=== PATIENT | female | born 1990 | race Caucasian/White ===

== ENCOUNTER 2023-11-01 12:12 | Emergency (ER) | payer MEDICAID, SELFPAY ==
--- NOTE | ~2023-11-01 | XR_ITS ---
EXAMINATION: XR KNEE, LEFT CLINICAL INFORMATION: Pain. No trauma. COMPARISON: None available. TECHNIQUE: Four views of the left knee. FINDINGS: No fracture or subluxation. Joint spaces are maintained. No significant joint effusion. No abnormal soft tissue calcifications. XR/XR knee LT 4V IMPRESSION: No significant radiographic abnormality in the left knee.
[2023-11-01 12:16] VITALS: BP 115/68; PULSE 67; RESP 17; TEMP 36.6; O2SAT 98; BMI 29.8
--- NOTE | 2023-11-01 12:18 | ED.LOWEXIN ---
HPI - Extremity Injury (Lower) General Chief Complaint: Extremity Injury, Lower Stated Complaint: knee pain Time Seen by Provider: 11/01/23 13:49 Source: patient Mode of arrival: ambulatory Limitations: no limitations History of Present Illness ED Provider: Ene Pimentel PA-C HPI Narrative: Patient is a 33 year old assigned female at with a history of a left knee scope for meniscus issues presenting to the emergency department today with left knee pain. Patient states that starting this morning she began having left knee pain. Patient states that her knee was previously scoped in [place] but she does not have an orthopedic physician here. Patient denies any dizziness, lightheadedness, abdominal pain, nausea, vomiting, fever, chills, blurry vision, double vision, loss of vision, chest pain, difficulty breathing, shortness of breath, back pain, night sweats, pain with urination, increased urinary frequency, increased urinary urgency, blood in her urine or stool, syncope or a near syncopal episode, recent trauma or falls, bowel incontinence, bladder incontinence, or any other complaints at this time. Relieving factors: nothing Exacerbating factors: nothing Related Data Previous Rx's ?Medication ?Instructions ?Recorded celecoxib 200 mg capsule (Celebrex) 200 mg PO BID 2 weeks #28 caps 11/01/23 Allergies Allergy/AdvReac Type Severity Reaction Status Date / Time No Known Allergies Allergy Verified 11/01/23 12:18 [No Known Allergies*] Review of Systems Constitutional: Constitutional: Reports no additional constitutional complaints, Denies chills, Denies fever(s) and Denies night sweats Eyes: Eyes: Reports no additional eye complaints, Denies blurry vision, Denies change in vision, Denies diplopia, Denies eye discharge, Denies loss of vision and Denies eye pain ENT: Denies dizziness Cardiovascular: Cardiovascular: Reports no additional cardiovascular complaints, Denies chest pain, Denies lightheadedness, Denies Loss of Consciousness and Denies dyspnea Respiratory: Respiratory: Reports no additional respiratory complaints and Denies dyspnea Gastrointestinal: Gastrointestinal: Reports no additional gastrointestinal complaints, Denies abdominal pain, Denies melena, Denies hematochezia, Denies change in bowel habits and Denies change in stool character Genitourinary: Genitourinary: Denies hematuria, Denies urinary frequency, Denies dysuria, Denies urinary incontinence, Denies urinary hesitancy and Denies urinary urgency Musculoskeletal: Musculoskeletal: Reports no additional musculoskeletal complaints, Denies numbness and Denies tingling Comments: left knee pain Neurologic: Denies dizziness, Denies loss of vision, Denies numbness and Denies tingling Psychiatric: Psychiatric: Reports no additional psychiatric complaints Endocrine: Endocrine: Reports no additional endocrine complaints Hematologic/Lymphatic: Hematologic/Lymphatic: Reports no additional hematologic/lymphatic complaints Allergic/Immunologic: Allergic/Immunologic: Reports no additional allergic/immunologic complaints PMFSH Past Medical History Attestation statement: The following information was validated with the patient. Source: old records reviewed and nursing notes reviewed Social History Social History Advance Directives: No Advance Directives Information Provided: Yes Physical Exam Vital Signs: Vital Signs: Last Vital Signs Temp 98.1 F 11/01/23 14:21 Pulse 62 11/01/23 14:21 Resp 16 11/01/23 14:21 BP 106/71 11/01/23 14:21 Pulse Ox 99 11/01/23 14:21 O2 Del Method Room Air 11/01/23 14:21 BMI result Body Mass Index 29.8 Const: General: cooperative, no acute distress, alert and awake Nutritional Appearance: well nourished Orientation/consciousness: patient oriented x3 Limitations: no limitations HEENT: Head: Yes normal to inspection and Yes atraumatic Ears: hearing grossly normal bilaterally and external ears normal General nose exam: Normal external nose present, no nasal discharge noted and no epistaxis Face and sinus: Yes normal facial exam, No abrasion and No laceration Mouth: Normal oral and palatal mucosa present, no drooling and no muffled voice Eyes: General: appearance normal, both eyes and all related structures Periorbital: periorbital findings normal Eyelids: Yes eyelids normal Conjunctivae: conjunctivae normal Pupils: Equal, round and reactive pupils present EOM: EOMs intact bilaterally Neck: Neck: Yes normal visual inspection, Yes full ROM and Yes no lymphadenopathy Chest: Chest palpation & inspection: normal inspection of the chest Resp: Effort & Inspection: normal respiratory effort and able to speak in complete sentences GI: Inspection: Yes normal to inspection Neuro: General: patient oriented x3 and moves all extremities Cranial nerves: Yes Equal, round and reactive pupils present Cognition (Neuro): normal cognition Motor exam (neuro): 5 motor strength present throughout Sensory Exam: Normal double simultaneous stimulation for sensation Coordination: [id number] test normal Extrem: General: Yes normal to inspection, Yes full ROM and Yes capillary refill normal Psych: Appearance: grossly normal Mental Status: mental status grossly normal Affect: normal affect Attitude: cooperative Thought process: Normal thought process present Thought content: Normal thought content present Insight: Good insight present (Psych) Course Course Course Narrative: This is a Rapid Medical Examination (RME) performed by Winifred Fabian PA-C in triage. Full HPI, ROS, assessment and treatment plan per primary provider in the Main ED. 33 yo female hx of left meniscus tear s/p surgical repair 1 yr ago here for eval of atraumatic left knee pain which began yesterday around 0400. took motrin with little relief, last dose being yesterday. unsure if she twisted the knee in her sleep. no recent travel or long car rides. no LLE swelling. ambulating with antalgic gait. no calf tenderness. no obvious joint effusion of right knee. no deformity. Plan: xr ordered Medications Administered Discontinued Medications Generic Name Dose Route Start Last Admin Trade Name Freq PRN Reason Stop Dose Admin Ketorolac Tromethamine 15 mg 11/01/23 13:52 11/01/23 14:13 Ketorolac Tromethamine 15 Mg/Ml Vial IM 11/01/23 13:53 15 mg ONCE ONE Administration Medical Decision Making Medical Decision Making [facility] Narrative: Patient is a 33 year old assigned female at with a history of a previous left knee scope presenting to the emergency department today with left knee pain. Patient's physical exam was unremarkable. Patient's left knee x-ray showed no acute process. I explained my physical exam findings as well as all test results to the patient. I answered all questions asked by the patient. Patient received IM toradol which upon re-evaluation she stated helped her symptoms significantly. I stressed the importance of the patient taking her medication as prescribed. I stressed the importance of the patient following up with her primary care provider and an orthopedic provider. I stressed the importance of the patient returning to the emergency department immediately if her symptoms were to worsen or if she were to develop any dizziness, shortness of breath, difficulty breathing, chest pain, blurry vision, loss of vision, nausea, vomiting, abdominal pain, fever, chills, back pain, or any other complaints. Patient verbalized agreement and understanding with this treatment plan and discharge. Differential Diagnosis Differential Diagnoses: The differential diagnosis associated with the presentation includes Left knee pain Osteoarthritis Knee sprain Knee strain Admission/Observation Consideration of admission/observation: Escalation of care including admission/observation considered Patient would have been admitted to the hospital had her work up had any findings where hospital admission was appropriate and her clinical presentation warranted hospital admission. Independent Interpretation I performed an independent interpretation of an: Plain X-Ray Interpretation: My interpretation is in agreement with the radiologist's impression of this imaging study. EXAMINATION: XR KNEE, LEFT CLINICAL INFORMATION: Pain. No trauma. COMPARISON: None available. TECHNIQUE: Four views of the left knee. FINDINGS: No fracture or subluxation. Joint spaces are maintained. No significant joint effusion. No abnormal soft tissue calcifications. XR/XR knee LT 4V IMPRESSION: No significant radiographic abnormality in the left knee. Dictated By: Eva Alcantara Signed By: Electronically signed by Eva Alcantara 11/01/23 5730 Radiology Impression Discussion of test interpretation with radiology: I have reviewed the radiologist's reading. Prescription Management I considered prescription management with: Pain Medication (patient prescribed pain medication) Discharge Plan Discharge Clinical Impression: Acute knee pain Patient Disposition: Home, Self-Care Instructions: Knee Pain (ED) Additional Instructions: Follow up with your primary care provider and an orthopedic provider. Return to the emergency department immediately if your symptoms worsen or if you develop any dizziness, shortness of breath, difficulty breathing, chest pain, blurry vision, loss of vision, nausea, vomiting, abdominal pain, fever, chills, back pain, or any other complaints. Prescriptions: New celecoxib [Celebrex] 200 mg capsule 200 mg PO BID 14 Days Qty: 28 0RF Referrals: [facility] [place] [Provider Group] (Call to establish and follow up with a primary care provider. If you already have a primary care provider, please follow up with them.) [facility] [place] [Provider Group] [facility] [place] [facility] [Provider Group] [facility] [place] [facility] [Provider Group] (Call to establish and follow up with an military source operations specialist.) Stand Alone Forms: Work/School Release Interventions: ED Discharge Assessment Last Done: 11/01/23 14:21 Discharge Date/Time: 11/01/23 14:22 Print Language: Romansh
[2023-11-01 14:07] VITALS: BP 106/71; PULSE 62; RESP 16; TEMP 36.7; O2SAT 99
[2023-11-01] MEDS: Ketorolac Tromethamine 15 MG/ML VIAL IM (14:13)
[2023-11-01 14:21] VITALS: BP 106/71; PULSE 62; RESP 16; TEMP 36.7; O2SAT 99
== END 2023-11-01 14:22 | disposition home or self-care (01) ==
PROVIDERS: Emergency Provider Emergency Medicine Emergency Medical Services
DX: M25.562 Pain in left knee (principal)
CPT/HCPCS: 73564; 96372; 99283; 99284; J1885

== ENCOUNTER 2023-11-17 13:27 | Outpatient (REF) | payer MEDICAID, SELFPAY ==
[2023-11-17 16:06] LABS: MANUAL DIFF FLAG NO
[2023-11-17 16:25] LABS: Basophils Absolute Auto 0.1 X10*3/uL (0.0-0.2); Basophils Percent Auto 0.6 % (0-2); Eosinophils Absolute Auto 0.1 X10*3/uL (0.0-0.4); Eosinophils Percent Auto 0.6 % (0-4); Hematocrit 32.9 % (37.0-47.0); Hemoglobin 10.2 g/dl (12.0-16.0); Imm Gran Abs Auto 0.03 X10*3/uL (0.00-0.03); Imm Gran Pct Auto 0.3 % (0.0-0.4); Lymphocytes Absolute Auto 3.2 X10*3/uL (1.2-4.9); Lymphocytes Percent Auto 29.9 % (20-40); Mean Corpuscular Hemoglobin 23.8 pg (27.0-33.0); Mean Corpuscular Volume 76.7 fL (80.0-98.0); Mean Platelet Volume 9.5 fL (9.4-12.3); Monocytes Absolute Auto 0.5 X10*3/uL (0.1-1.2); Monocytes Percent Auto 4.4 % (2-11); Neutrophils Absolute Auto 6.8 x10*3/uL (2.0-8.3); Neutrophils Percent Auto 64.2 % (45-73); Platelet Count 379 X10*3/uL (160-400); Red Blood Count 4.29 X10*6/uL (4.20-5.50); Red Cell Distribution Width 16.7 % (11.0-16.0); White Blood Count 10.6 X10*3/uL (4.8-10.8)
== END 2023-11-17 13:28 | disposition home or self-care (01) ==
LOC: HO.HHCL 13:27
PROVIDERS: Visit Provider Internal Medicine
DX: R31.0 Gross hematuria (principal); D63.8 Anemia in other chronic diseases classified elsewhere
CPT/HCPCS: 36415; 85025; 87086

== ENCOUNTER 2023-12-18 09:22 | Outpatient (REF) | payer MEDICAID, SELFPAY ==
--- NOTE | ~2023-12-18 | XR_ITS ---
Exam: Standing knees INDICATION: Pain COMPARISON: 11/01/2023 TECHNIQUE: Single AP standing knees FINDINGS: Knee joints are symmetric in height. No significant joint space narrowings. No fracture or dislocation. Alignment is maintained. XR/XR knee RT 2V IMPRESSION: Unremarkable single standing AP view of the knees. Electronically signed by: Onelia Cisneros MD 01/19/2024 10:14 AM EDT
--- NOTE | ~2023-12-18 | XR_ITS ---
EXAMINATION: XR KNEE, LEFT CLINICAL INFORMATION: Pain COMPARISON: None available. TECHNIQUE: [place] view of the left knee. FINDINGS: Joint space is maintained. Alignment on single view provided appears normal. XR/XR knee LT 1V IMPRESSION: Unremarkable single view left knee. Electronically signed by: Onelia Cisneros MD 01/19/2024 08:59 AM EDT
== END 2023-12-18 09:23 | disposition home or self-care (01) ==
LOC: HO.HOSX 09:22
PROVIDERS: Visit Provider Physician Assistant
DX: Z13.89 Encounter for screening for other disorder (principal)

== ENCOUNTER 2023-12-22 13:10 | Outpatient (AMB) | payer MEDICAID, SELFPAY ==
--- NOTE | 2023-12-22 13:16 | A.OFFVIS_ITS ---
Vital Signs 12/22/23 13:31 Height 5 ft 5 in Weight 179 lb BMI 29.8 Intake Visit Reasons: N/P Left knee pain/ denies injury Intake Note: Palma is a 33 year old female who presents today as a new patient for a evaluation of her left knee pain. Hx of left knee in [place] about a year ago. Patient was seen in the ED for left knee pain, however she didn't have an injury. She states that her pain is around the knee and she notices swelling. Hx of one cortisone injection with no relief back in [place]. She mentions when she is over doing it with walking and do too much she feels the pain to her lower back. Pain is worse when going up the stairs, sitting for to long and standing. International Marketing Executive Services: International Marketing Executive Present International Marketing Executive Name: [id number] shabana Allergies No Known Allergies [No Known Allergies*] Allergy (Verified 12/22/23 13:29) HPI HPI N/P Left knee pain/ denies injury : Details: 33-year-old female who presents in the office today, as a new patient, for an evaluation of left knee pain. The patient presented to the ED on 11/01/23 with a complaint of left knee pain for one day. X-rays were obtained. She was prescribed celecoxib 200 mg PO BID.? ? While in the office today, the patient claims the pain is around the left knee with edema. She states she has pain in her lower back when overworking or doing too much. She reports increased pain in the left knee when going up the stairs, sitting for long periods of time, or standing. She denies any known injury. She confirms a history of one cortisone injection in [place] with no relief. ? ? Patient has a history of left knee arthroscopy in [place] in 2022. ? [facility] Social History (Updated 12/22/23 @ 13:30 by Pamela Torre) Alcohol intake: never Patient Tobacco Use Status: Never used Tobacco Current occupational status: unemployed Review of Systems Const All systems reviewed & are unremarkable except as noted in HPI and below Physical Exam Vital Signs: BMI result Body Mass Index 29.8 Const General: cooperative and no acute distress Orientation/consciousness: patient oriented x3 Resp Effort & Inspection: normal respiratory effort and able to speak in complete sentences Cardio Peripheral pulses: Peripheral pulses 2+ throughout Skin General skin exam: no rashes or lesions noted Neuro General: patient oriented x3 Extrem Other: Left knee: Normal to inspection. No ecchymosis, erythema, or joint effusion. Tenderness to palpation along the medial or lateral joint lines. Full knee extension and flexion. Pain with straight leg raise. Negative Paulina's. Negative anterior drawer. Describes numbness and tingling around the entire left knee. ? ? Confirms pain radiating down the lateral aspect of the left hip down into the left foot. Also confirms lower back pain.? Assessment & Plan Assessment & Plan (1) Internal derangement of left knee: Code(s): M23.92 - Unspecified internal derangement of left knee Category: Medical (2) Lumbar radicular pain: Code(s): M54.16 - Radiculopathy, lumbar region Category: Medical Plan Ms. Alvarez is a 33-year-old female who presents in the office today, as a new patient, for an evaluation of left knee pain. The patient presented to the ED on 11/01/23 with a complaint of left knee pain for one day. X-rays were obtained. She was prescribed celecoxib 200 mg PO BID.? ? While in the office today, the patient claims the pain is around the left knee with edema. She states she has pain in her lower back when overworking or doing too much. She reports increased pain in the left knee when going up the stairs, sitting for long periods of time, or standing. She denies any known injury. She confirms a history of one cortisone injection in [place] with no relief. ? ? Patient has a history of left knee arthroscopy in [place] in 2022. ? ? Lower back: A referral for the patient to be evaluated by Physiatry for lower back was made today. Follow-up for the lower back pain will be PRN, or sooner if needed. ? ? Left knee: A order has been placed for an MRI to further evaluate the integrity of the left knee and surrounding structures for possible surgical intervention. Follow-up for the left knee will be after the MRI is obtained, or sooner if needed. ? ? X-rays of the left knee which were obtained while in the office today and were reviewed by me, Aleta Encinas PA-C, revealed no acute fracture or dislocation.? ? X-rays of the left knee, obtained on 11/01/23, revealed: No significant radiographic abnormality in the left knee.? Orders: Orders XR knee LT 1V Today M25.569 - Pain in unspecified knee XR knee RT 2V Today M25.569 - Pain in unspecified knee MR knee LT wo con Today M23.92 - Unspecified internal derangement of left knee Medications: Discontinued celecoxib (Celebrex) Discontinued Reason: Patient no longer taking 200 mg PO BID 2 weeks 28 caps 0RF Patient Instructions: Scribed by Simran [place] medical dermatologist, for Aleta Encinas PA-C on 12/22/2023 at 1:11 pm, EST.? Coding Level of Care Code New Pt Level 4 (08089) Diagnoses Internal derangement of left knee M23.92 Lumbar radicular pain M54.16
[2023-12-22 13:31] VITALS: BMI 29.8
== END 2023-12-22 14:09 | disposition home or self-care (01) ==
PROVIDERS: Visit Provider Physician Assistant
DX: M23.92 Unspecified internal derangement of left knee (principal); M54.16 Radiculopathy, lumbar region
CPT/HCPCS: 99204

== ENCOUNTER → 2023-12-22 13:10 | Outpatient (BNVA) | payer MEDICAID, SELFPAY | PROVIDERS: Visit Provider Physician Assistant | DX: M23.92 Unspecified internal derangement of left knee (principal); M54.16 Radiculopathy, lumbar region | CPT/HCPCS: 73560; 99212 ==

== ENCOUNTER 2024-01-28 08:16 | Outpatient (AMB) | payer MEDICAID, SELFPAY ==
--- NOTE | 2024-01-28 08:29 | A.OFFVIS_ITS ---
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 Patient was recently seen here at [facility] with CURRY Encinas who referred patient to physiatry. Patient reports her left knee pain presented about a year and a half ago that is now radiating up from her knee to her lower back. She has numbness and tingling sensation. No relief with ibuprofen. No other treatment. Molecular Spectroscopist Required: Yes Molecular Spectroscopist Name: Kalyn, ID#[id number] Allergies No Known Allergies [No Known Allergies*] Allergy (Verified 01/28/24 08:44) HPI Comments Details: Seen by ortho Aleta ZAPIEN for left knee pain. MRI ordered. Xray normal. Patient mentioned back pain and thus referred to Physiatry. 1 1/2 years of back pain, across the back, goes down to left leg/knee, occasionally to ankle. Tingling/numbness on thigh lateral but no numbness to the foot. Started as knee pain, told to have meniscus injury, s/p arthroscopic surgery August 2022. No PT yet. REPLACED BY [facility] Surgical History (Updated 01/28/24 @ 08:34 by FAUSTO Christianson) Hx of left knee surgery Social History Alcohol intake: never Patient Tobacco Use Status: Never used Tobacco Current occupational status: unemployed Review of Systems Const All systems reviewed & are unremarkable except as noted in HPI and below Physical Exam Vital Signs: BMI result Body Mass Index 29.8 Constitutional: Patient appears to be in no acute distress, well nourished and well developed. Patient was appropriately conversant and oriented. Good historian. MSK: No specific abnormalities found on inspection of the spine and all extremities. Left SI joint tenderness. Tightness on lumbar paraspinals. No tenderness on GT. Lumbar ROM was full. Bilateral hip, knee and ankle ROM WNL. No ligamentous laxity or crepitance. No increased effusion. Straight-leg raising test negative. FABERE test positive left back pain. Strength is 5/5 in all muscle groups tested. No increased tone noted. Neurological: Neurologic examination of the upper and lower extremities was nonfocal with intact sensation, muscle stretch reflexes and without focal motor deficits . Kaur?s negative bilaterally. Babinski was down going bilaterally. Clonus was negative. Gait is antalgic without loss of balance. Results Reviewed Results Reviewed: Ordering Physician: Aleta Encinas PA-C Date of Service: 12/22/23 Procedure(s): XR knee RT 2V Accession Number(s): [id number] cc: Aleta Encinas PA-C~ Exam: Standing knees INDICATION: Pain COMPARISON: 11/01/2023 TECHNIQUE: Single AP standing knees FINDINGS: Knee joints are symmetric in height. No significant joint space narrowings. No fracture or dislocation. Alignment is maintained. XR/XR knee RT 2V IMPRESSION: Unremarkable single standing AP view of the knees. Electronically signed by: Onelia Cisneros MD 01/19/2024 10:14 AM EDT RP I reviewed records from the following: Ortho Assessment & Plan Assessment & Plan (1) Sacroiliac joint dysfunction of left side: Code(s): M53.3 - Sacrococcygeal disorders, not elsewhere classified Category: Medical (2) Lumbar paraspinal muscle spasm: Code(s): M62.830 - Muscle spasm of back Category: Medical Plan Possibly biomechanical lumbar/girdle pain, affected by previous left knee issues. Sending to PT to work on pelvic and SI alignment and work on lumbar paraspinals. Will do lumbar xrays today. Assessment and plan discussed with patient, and patient was agreeable. All questions were answered thoroughly. Follow-up 4-6 weeks, after PT. Paola Villatoro MD, BALJIT Board Certified, [place] [employer] and [employer] (ABPMR) Board Certified, [place] [employer] Electro[employer] (ABEM) Orders: Orders XR lumbar spine 2-3V Today M54.9 - Dorsalgia, unspecified PT Evaluation and Treatment Today M53.3 - Sacrococcygeal disorders, not elsewhere classified, M62.830 - Muscle spasm of back Coding Level of Care Code New Pt Level 4 (41380) Diagnoses Sacroiliac joint dysfunction of left side M53.3 Lumbar paraspinal muscle spasm M62.830
[2024-01-28 08:44] VITALS: BMI 29.8
== END 2024-01-28 09:20 | disposition home or self-care (01) ==
PROVIDERS: Visit Provider Physical Medicine & Rehabilitation
DX: M53.3 Sacrococcygeal disorders, not elsewhere classified (principal); M62.830 Muscle spasm of back
CPT/HCPCS: 99203

== ENCOUNTER → 2024-01-28 08:16 | Outpatient (BNVA) | payer MEDICAID, SELFPAY | PROVIDERS: Visit Provider Physical Medicine & Rehabilitation | DX: M53.3 Sacrococcygeal disorders, not elsewhere classified (principal); M62.830 Muscle spasm of back | CPT/HCPCS: 99202 ==

== ENCOUNTER 2024-03-20 07:51 | Inpatient (IN) | payer MEDICAID, SELFPAY ==
[2024-03-20] VITALS (10 sets, daily range): BP systolic 85–115; BP diastolic 46–74; PULSE 56–86; RESP 16–20; TEMP 36.2–36.9; O2SAT 98–100; BMI 27.5
--- NOTE | ~2024-03-20 | US_ITS ---
EXAMINATION: US RETROPERITONEAL LIMITED (RENAL ONLY) CLINICAL INFORMATION: Acute pain left flank. COMPARISON: None available. TECHNIQUE: Real-time ultrasound images of the bilateral kidneys. Limited visualization due to bowel gas. FINDINGS: RIGHT KIDNEY: 11.0 x 5.4 x 4.5 cm (SAG x AP x TRV). No hydronephrosis. No renal calculi. Renal cortical thickness is normal. Limited visualization. LEFT KIDNEY: 10.3 x 5.7 x 4.8 cm (SAG x AP x TRV). No hydronephrosis. No renal calculi. Renal cortical thickness is normal. Limited visualization. US/US renal BI IMPRESSION: No hydronephrosis. No renal calculi. This study was presented today, March 22, 2024, for interpretation. Stat results provided at this time as requested by referring provider. Electronically signed by: Yuliya Boss MD 03/22/2024 08:35 AM [facility] [place]
--- NOTE | ~2024-03-20 | CT_ITS ---
EXAMINATION: CT ABDOMEN AND PELVIS WITH CONTRAST CLINICAL INFORMATION: Lower abdominal pain, left flank pain, rule out pyelonephritis COMPARISON: None available. TECHNIQUE: Multidetector volumetric images were obtained from the superior aspect of the liver through the pubic symphysis following administration 85 mL of Omnipaque 350 intravenous contrast. Sagittal and coronal reformatted images were obtained on the technologist's workstation. Oral contrast: No This CT examination was performed using dose optimization techniques as appropriate, variously including the following: *Automated exposure control *Adjustment of mA and/or kV according to patient size (this includes techniques or standardized protocols for targeted exams where dose is matched to indication/reason for exam; i.e. extremities or head) *Use of iterative reconstruction technique DLP: 607 mGy-cm FINDINGS: LUNG BASES: Mosaic attenuation of the visualized lung bases, left greater than right. LIVER, GALLBLADDER, AND BILIARY TREE: The liver is normal in size, shape, and attenuation. Small focus of hyperattenuation in the left hepatic lobe adjacent to the falciform ligament is incompletely characterized may represent focal fat infiltration, 3:26. Tiny simple cyst within the inferior right hepatic lobe, 3:33. No biliary ductal dilatation is present. The gallbladder is unremarkable with no evidence of radiopaque gallstones, gallbladder wall thickening, or obvious pericholecystic inflammatory changes. PANCREAS: Unremarkable. SPLEEN: Unremarkable. ADRENAL GLANDS: Unremarkable. KIDNEYS AND URETERS: The kidneys are normal in size, shape, and attenuation. No hydronephrosis or hydroureter. 0.5 cm nonobstructing calculus in the upper pole of the right kidney with a density of approximately 970 Hounsfield units. There is an ill-defined focus of hypoattenuation within the midpole of the left kidney with probable extension to the periphery of the cortex, 7:61. No perinephric fat stranding. No foci of gas within the left renal collecting system. BLADDER: Partially distended with mild wall thickening. GASTROINTESTINAL TRACT: Stomach and small bowel are nondilated. Large colonic stool burden, most pronounced in the cecum. Fecalization of distal ileal loops which can be seen with slow transit. The appendix is not visualized with likely surgical clip in the right lower quadrant. No colonic wall thickening or pericolonic inflammatory changes. ABDOMINAL WALL: Tiny fat-containing umbilical hernia. LYMPH NODES: No abdominopelvic adenopathy. VASCULAR: Abdominal aorta is normal in caliber. PELVIC VISCERA: The uterus is retroverted. Overall limited evaluation of adnexal structures on CT. 1.5 cm peripherally hyperattenuating structure within the right ovary, favored to represent a corpus luteal cyst. 2.5 cm simple right ovarian cyst/follicle. No dedicated follow-up imaging is required. 2.2 cm hypoattenuating structure in the left adnexa may represent the left ovary. OSSEOUS STRUCTURES: No acute osseous abnormality. CT/CT abdomen pelvis w IV con IMPRESSION: Ill-defined focus of hypoattenuation within the midpole of the left kidney with probable extension to the periphery of the cortex. There is no left renal calculus, perinephric fat stranding or foci of gas in the left renal collecting system. Findings may represent developing acute pyelonephritis the appropriate clinical context. Nonobstructing right renal calculus. Partially distended urinary bladder mild wall thickening. Correlate with urinalysis if there is clinical concern for cystitis. Electronically signed by: Eric Leigh MD 03/20/2024 10:10 AM AMMY JENNINGS
[2024-03-20 08:34] LABS: MANUAL DIFF FLAG NO
[2024-03-20 08:36] LABS: Basophils Absolute Auto 0.1 X10*3/uL (0.0-0.2); Basophils Percent Auto 0.6 % (0-2); Eosinophils Absolute Auto 0.1 X10*3/uL (0.0-0.4); Eosinophils Percent Auto 1.1 % (0-4); Hematocrit 33.5 % (37.0-47.0); Hemoglobin 10.6 g/dl (12.0-16.0); Imm Gran Abs Auto 0.02 X10*3/uL (0.00-0.03); Imm Gran Pct Auto 0.3 % (0.0-0.4); Lymphocytes Absolute Auto 2.2 X10*3/uL (1.2-4.9); Mean Corpuscular HGB Conc 31.6 g/dl (31.0-35.0); Mean Corpuscular Hemoglobin 24.3 pg (27.0-33.0); Mean Corpuscular Volume 76.8 fL (80.0-98.0); Mean Platelet Volume 8.7 fL (9.4-12.3); Monocytes Absolute Auto 0.4 X10*3/uL (0.1-1.2); Monocytes Percent Auto 4.8 % (2-11); Neutrophils Absolute Auto 5.2 x10*3/uL (2.0-8.3); Neutrophils Percent Auto 65.2 % (45-73); Platelet Count 334 X10*3/uL (160-400); Red Blood Count 4.36 X10*6/uL (4.20-5.50); Red Cell Distribution Width 15.4 % (11.0-16.0)
--- NOTE | 2024-03-20 08:37 | ED.ABDPAIN ---
HPI - Abdominal Pain General Chief Complaint: Abdominal Pain Stated Complaint: Lower abd pain Time Seen by Provider: 03/20/24 08:03 Source: patient Mode of arrival: ambulatory Limitations: language barrier (Patient's 1st language is Monegasque, she speaks some Greenlandic, [facility] vendor management specialist used) History of Present Illness ED Provider: Dr. Joe Pappas HPI narrative: 34-year-old female with a history of anemia, ovarian cyst, x3 who presents emergency department for evaluation of lower abdominal pain x3 days. She states that 3 days prior she had a gradual onset of lower abdominal pain. She describes the pain is a constant pressure-like pain which is greater than 10/10. The pain does radiate to her left back. She states she has had urinary frequency and urgency but no dysuria. She states this is her 1st episode of this type of pain. The patient had associated chills but no fever. She denied nausea vomiting or diarrhea. She states that 2 months prior she did notice some blood in her stool which resolved. Related Data Allergies Allergy/AdvReac Type Severity Reaction Status Date / Time No Known Allergies Allergy Verified 03/20/24 08:00 Review of Systems Review of Systems Yes all other systems are reviewed and are negative [facility] Past Medical History [facility] Narrative: Social history: She denies tobacco, alcohol and drug use. Social History Social History Smoked in Last 30 Days: No Use of substances other than those prescribed or required for medical reasons: No Advance Directives: No Advance Directives Information Provided: Yes Do you have a plan to hurt others: No Plan Physical Exam ED Vital Signs: Vital Signs - 24 hr 03/20/24 07:53 03/20/24 10:09 03/20/24 10:18 Temperature 97.8 F 97.9 F Pulse Rate 86 56 68 Respiratory Rate 16 17 18 Blood Pressure 115/58 L 85/46 L 108/68 Pulse Oximetry 100 98 Oxygen Delivery Method Room Air Room Air Room Air 03/20/24 12:09 03/20/24 13:56 03/20/24 13:58 Temperature Pulse Rate 64 61 Respiratory Rate 17 18 Blood Pressure 96/56 L 98/65 100/74 Pulse Oximetry 99 99 Oxygen Delivery Method Room Air Room Air BMI result Body Mass Index 27.5 Vital signs were normal. Exam: General: Awake, alert, appears to be in distress secondary to her abdominal pain Head: Normocephalic, atraumatic EENT: PERRL, Lids normal, sclera normal, conjunctiva normal, nose normal , ears normal, throat without erythema or exudates Neck: Supple, no adenopathy Lung: breath sounds symmetric, no wheezing, rales or rhonchi Chest: symmetric movement, nontender Heart: regular rate and rhythm, normal S1, S2 no murmurs or rubs Abdomen: soft, moderate to severe suprapubic tenderness, moderate left lower quadrant tenderness, mild diffuse tenderness, no rebound, no voluntary or involuntary guarding Back: no vertebral tenderness, moderate left CVAT Extremities: no deformities, moves all extremities symmetrically Neuro: Awake, alert, oriented, normal speech, cranial nerves intact, moves all extremities symmetrically Psych: Pleasant, cooperative Medical Decision Making Medical Decision Making MDM Narrative: 34-year-old female with a history of anemia, ovarian cyst, x3 who presents emergency department for evaluation of lower abdominal pain x3 days. Pain is a constant, lower abdominal pressure-like pain radiating to her left flank associated with urgency frequency, no dysuria, chills and no fever. Pain was greater than 10/10 on presentation. Vital signs were normal. Exam did reveal significant suprapubic and left lower quadrant tenderness as well as left CVA tenderness. Differential diagnosis: ?Includes but is not limited to cystitis, pyelonephritis, pelvic inflammatory disease, diverticulitis, appendicitis, pancreatitis, anemia, electrolyte abnormalities Following evaluation was ordered: CBC, BMP, liver panel, lipase, urinalysis, urine test,, CT scan abdomen pelvis with IV contrast Patient was initially treated with the following: IV insert, cardiac monitoring, O2 saturation monitoring, Toradol 15 mg IV, morphine 4 mg IV, Zofran 4 mg IV, normal saline IV x1 L Course: 13:48 My interpretation patient's laboratory evaluation is as follows: WBC was normal 8000. Microcytic anemia with an H&H of 10 and 33.5 with an MCV of 76.8. Elevated chloride 109, low bicarb 20. Elevated AST 33. Lipase was negative. Urinalysis was positive for blood and leukocyte esterase. Negative for nitrates. Microscopic revealed 6-10 RBCs, greater than 50 WBCs, no bacteria, 0-2 squamous cells. Lactic acid was normal at 1.7 CT scan of the abdomen concerning for left pyelonephritis. The patient required 2nd dose of morphine with no relief for pain therefore I ordered fentanyl 50 mcg IV. I also ordered a 2 L of normal saline IV. Admission/Observation Consideration of admission/observation: Escalation of care including admission/observation considered (Yes) Lab Data [facility] Lab Attestation statement: I reviewed the patient's lab results. 03/20/24 08:29 03/20/24 08:29 Labs: Lab Results 03/20/24 03/20/24 03/20/24 Range/Units 08:29 08:46 08:55 WBC 8.0 (4.8-10.8) X10*3/uL RBC 4.36 (4.20-5.50) X10*6/uL Hgb 10.6 L (12.0-16.0) g/dl Hct 33.5 L (37.0-47.0) % MCV 76.8 L (80.0-98.0) fL MCH 24.3 L (27.0-33.0) pg MCHC 31.6 (31.0-35.0) g/dl RDW 15.4 (11.0-16.0) % Plt Count 334 (160-400) X10*3/uL MPV 8.7 L (9.4-12.3) fL Immature Gran % (Auto) 0.3 (0.0-0.4) % Neut % (Auto) 65.2 (45-73) % Lymph % (Auto) 28.0 (20-40) % [place] % (Auto) 4.8 (2-11) % Eos % (Auto) 1.1 (0-4) % Baso % (Auto) 0.6 (0-2) % Lymph # (Auto) 2.2 (1.2-4.9) X10*3/uL [place] # (Auto) 0.4 (0.1-1.2) X10*3/uL Eos # (Auto) 0.1 (0.0-0.4) X10*3/uL Baso # (Auto) 0.1 (0.0-0.2) X10*3/uL Abs Immat Gran (auto) 0.02 (0.00-0.03) X10*3/uL Absolute Neuts (auto) 5.2 (2.0-8.3) x10*3/uL Absolute Nucleated RBC 0.000 (0.0-0.012) X10*3/uL Nucleated RBC % (auto) 0.0 (0.0-0.2) /100WBC APTT 33.5 (26.0-36.8) SEC Sodium 137 (135-145) mmol/L Potassium 4.4 (3.3-5.1) mmol/L Chloride 109 H (96-108) mmol/L Carbon Dioxide 20 L (22-29) mmol/L Anion Gap 12 (12-20) BUN 9 (9-16) mg/dL Creatinine 0.85 (0.5-1.4) mg/dL Estim Creat Clear Calc 96.0 Estimated GFR > 60 Random Glucose 106 (60-115) mg/dL Lactic Acid (0.5-2.0) mmol/L Calcium 9.6 (8.4-10.2) mg/dL Total Bilirubin 0.5 (0.0-1.0) mg/dL Direct Bilirubin 0.2 (0.0-0.5) mg/dL AST 33 H (5-31) U/L ALT 14 (0-31) U/L Alkaline Phosphatase 73 (39-117) U/L Total Protein 8.0 (6.5-8.0) g/dL Albumin 4.1 (3.5-5.0) g/dL Lipase 22 (8-78) U/L Beta HCG, Quant < 2 mIU/mL Urine Color Yellow Urine Appearance Cloudy Urine pH 6.0 (5.0-9.0) Ur Specific [place] 1.010 (1.005-1.025) Urine Protein Trace (Neg-Trace) mg/dL Urine Glucose (UA) Negative (Negative) mg/dL Urine Ketones Negative (Negative) mg/dL Urine Blood Small (1+) H (Negative) Urine Nitrite Negative (Negative) Ur Leukocyte Esterase Large (3+) H (Negative) Urine RBC 6-10 H (0-2) /HPF Urine WBC >50 H (0-5) /HPF Ur Squamous Epith Cells 0-2 (0-2) /HPF Urine Bacteria None Seen (None Seen) Hyaline Casts 0-2 (0-2) /LPF Urine Test NEGATIVE (NEGATIVE) 11/03/24 Range/Units 11:17 WBC (4.8-10.8) X10*3/uL RBC (4.20-5.50) X10*6/uL Hgb (12.0-16.0) g/dl Hct (37.0-47.0) % MCV (80.0-98.0) fL MCH (27.0-33.0) pg MCHC (31.0-35.0) g/dl RDW (11.0-16.0) % Plt Count (160-400) X10*3/uL MPV (9.4-12.3) fL Immature Gran % (Auto) (0.0-0.4) % Neut % (Auto) (45-73) % Lymph % (Auto) (20-40) % [place] % (Auto) (2-11) % Eos % (Auto) (0-4) % Baso % (Auto) (0-2) % Lymph # (Auto) (1.2-4.9) X10*3/uL [place] # (Auto) (0.1-1.2) X10*3/uL Eos # (Auto) (0.0-0.4) X10*3/uL Baso # (Auto) (0.0-0.2) X10*3/uL Abs Immat Gran (auto) (0.00-0.03) X10*3/uL Absolute Neuts (auto) (2.0-8.3) x10*3/uL Absolute Nucleated RBC (0.0-0.012) X10*3/uL Nucleated RBC % (auto) (0.0-0.2) /100WBC APTT (26.0-36.8) SEC Sodium (135-145) mmol/L Potassium (3.3-5.1) mmol/L Chloride (96-108) mmol/L Carbon Dioxide (22-29) mmol/L Anion Gap (12-20) BUN (9-16) mg/dL Creatinine (0.5-1.4) mg/dL Estim Creat Clear Calc Estimated GFR Random Glucose (60-115) mg/dL Lactic Acid 1.7 (0.5-2.0) mmol/L Calcium (8.4-10.2) mg/dL Total Bilirubin (0.0-1.0) mg/dL Direct Bilirubin (0.0-0.5) mg/dL AST (5-31) U/L ALT (0-31) U/L Alkaline Phosphatase (39-117) U/L Total Protein (6.5-8.0) g/dL Albumin (3.5-5.0) g/dL Lipase (8-78) U/L Beta HCG, Quant mIU/mL Urine Color Urine Appearance Urine pH (5.0-9.0) Ur Specific [place] (1.005-1.025) Urine Protein (Neg-Trace) mg/dL Urine Glucose (UA) (Negative) mg/dL Urine Ketones (Negative) mg/dL Urine Blood (Negative) Urine Nitrite (Negative) Ur Leukocyte Esterase (Negative) Urine RBC (0-2) /HPF Urine WBC (0-5) /HPF Ur Squamous Epith Cells (0-2) /HPF Urine Bacteria (None Seen) Hyaline Casts (0-2) /LPF Urine Test (NEGATIVE) Radiology Impression Discussion of test interpretation with radiology: I have reviewed the radiologist's reading. Radiologist Impression: EXAMINATION: CT ABDOMEN AND PELVIS WITH CONTRAST CLINICAL INFORMATION: Lower abdominal pain, left flank pain, rule out pyelonephritis FINDINGS: LUNG BASES: Mosaic attenuation of the visualized lung bases, left greater than right. LIVER, GALLBLADDER, AND BILIARY TREE: The liver is normal in size, shape, and attenuation. Small focus of hyperattenuation in the left hepatic lobe adjacent to the falciform ligament is incompletely characterized may represent focal fat infiltration, 3:26. Tiny simple cyst within the inferior right hepatic lobe, 3:33. No biliary ductal dilatation is present. The gallbladder is unremarkable with no evidence of radiopaque gallstones, gallbladder wall thickening, or obvious pericholecystic inflammatory changes. PANCREAS: Unremarkable. SPLEEN: Unremarkable. ADRENAL GLANDS: Unremarkable. KIDNEYS AND URETERS: The kidneys are normal in size, shape, and attenuation. No hydronephrosis or hydroureter. 0.5 cm nonobstructing calculus in the upper pole of the right kidney with a density of approximately 970 Hounsfield units. There is an ill-defined focus of hypoattenuation within the midpole of the left kidney with probable extension to the periphery of the cortex, 7:61. No perinephric fat stranding. No foci of gas within the left renal collecting system. BLADDER: Partially distended with mild wall thickening. GASTROINTESTINAL TRACT: Stomach and small bowel are nondilated. Large colonic stool burden, most pronounced in the cecum. Fecalization of distal ileal loops which can be seen with slow transit. The appendix is not visualized with likely surgical clip in the right lower quadrant. No colonic wall thickening or pericolonic inflammatory changes. ABDOMINAL WALL: Tiny fat-containing umbilical hernia. LYMPH NODES: No abdominopelvic adenopathy. VASCULAR: Abdominal aorta is normal in caliber. PELVIC VISCERA: The uterus is retroverted. Overall limited evaluation of adnexal structures on CT. 1.5 cm peripherally hyperattenuating structure within the right ovary, favored to represent a corpus luteal cyst. 2.5 cm simple right ovarian cyst/follicle. No dedicated follow-up imaging is required. 2.2 cm hypoattenuating structure in the left adnexa may represent the left ovary. OSSEOUS STRUCTURES: No acute osseous abnormality. IMPRESSION: Ill-defined focus of hypoattenuation within the midpole of the left kidney with probable extension to the periphery of the cortex. There is no left renal calculus, perinephric fat stranding or foci of gas in the left renal collecting system. Findings may represent developing acute pyelonephritis the appropriate clinical context. Nonobstructing right renal calculus. Partially distended urinary bladder mild wall thickening. Correlate with urinalysis if there is clinical concern for cystitis. Electronically signed by: Eric Leigh MD 03/20/2024 10:10 AM [facility] Independent Historian Clinical information obtained from an independent historian. History obtained from or confirmed by: Spouse Medications Administered Discontinued Medications Generic Name Dose Route Start Last Admin Trade Name Freq PRN Reason Stop Dose Admin Ceftriaxone Sodium 1 gm 03/20/24 10:43 03/20/24 11:28 Ceftriaxone Sodium 1 Gm Vial IVPUSH 03/20/24 10:44 1 gm ONCE STA Administration Lactated Ringer's 1,000 mls @ 999 mls/hr 03/20/24 08:39 03/20/24 10:28 Lr IV 03/20/24 09:39 Infused .Q1H1M STA Infusion Iohexol 85 ml 03/20/24 09:34 03/20/24 09:34 Iohexol 350 Mg/Ml 100 Ml Infus..Btl IV 03/20/24 09:35 85 ml ONCE ONE Administration Ketorolac Tromethamine 15 mg 03/20/24 08:33 03/20/24 08:38 Ketorolac Tromethamine 15 Mg/Ml Vial IVPUSH 03/20/24 08:34 15 mg ONCE STA Administration Morphine Sulfate 4 mg 03/20/24 08:33 03/20/24 08:39 Morphine Sulfate 4 Mg/Ml Cartridge IVPUSH 03/20/24 08:34 4 mg ONCE STA Administration Protocol Morphine Sulfate 4 mg 03/20/24 10:43 03/20/24 11:27 Morphine Sulfate 4 Mg/Ml Cartridge IVPUSH 03/20/24 10:44 4 mg ONCE STA Administration Protocol Ondansetron HCl 4 mg 03/20/24 08:33 03/20/24 08:38 Ondansetron Hcl 4 Mg/2 Ml Vial IVPUSH 03/20/24 08:34 4 mg ONCE ONE Administration Discharge Plan Discharge Clinical Impression: Acute pyelonephritis Patient Disposition: Admitted As Inpatient Print Language: Monegasque
[2024-03-20] MEDS: Ketorolac Tromethamine 15 MG/ML VIAL IVPUSH (08:38)
[2024-03-20] MEDS: ondansetron HCL 4 MG/2 ML VIAL IVPUSH (08:38)
[2024-03-20] MEDS: Morphine Sulfate 4 MG/ML CARTRIDGE IVPUSH ×2 (08:39→11:27)
[2024-03-20] MEDS: Lactated Ringers 1,000 ML 999 ML IV (08:42)
[2024-03-20 08:57] LABS: Partial Thromboplastin Time 33.5 SEC (26.0-36.8)
[2024-03-20 08:57] LABS: Alanine Aminotransferase 14 U/L (0-31); Albumin Level 4.1 g/dL (3.5-5.0); Alkaline Phosphatase 73 U/L (39-117); Anion Gap 12 (12-20); Aspartate Amino Transferase 33 U/L (5-31); Bilirubin Direct 0.2 mg/dL (0.0-0.5); Bilirubin Total 0.5 mg/dL (0.0-1.0); Blood Urea Nitrogen 9 mg/dL (9-16); Calcium 9.6 mg/dL (8.4-10.2); Carbon Dioxide 20 mmol/L (22-29); Chloride 109 mmol/L (96-108); Estimated Glomerular Filt Rate > 60; Glucose Random 106 mg/dL (60-115); Lipase 22 U/L (8-78); Potassium 4.4 mmol/L (3.3-5.1); Sodium 137 mmol/L (135-145)
[2024-03-20 09:02] LABS: UPreg QC Valid YES
[2024-03-20 09:04] LABS: Appearance Urine Cloudy; Color Urine Yellow; Glucose Urine UA Negative (Negative); Leukocyte Esterase Urine Large (3+) (Negative); Nitrite Urine Negative (Negative); UMIC TRIGGER UACC YES; Urine Blood Small (1+) (Negative); Urine Ketones Negative (Negative); Urine Pregnancy NEGATIVE (NEGATIVE); Urine Protein Trace mg/dL (Neg-Trace)
[2024-03-20 09:09] LABS: Bacteria Urine None Seen (None Seen); Hyaline Casts Urine 0-2 /LPF (0-2); Squamous Epithelial Cell Urine 0-2 /HPF (0-2); UACC Culture Trigger YES; WBC Urine >50 /HPF (0-5)
[2024-03-20] MEDS: iohexoL 350 MG/ML 100 ML INFUS..BTL 85 ML IV (09:34)
[2024-03-20 09:39] LABS: HCG Quantitative < 2 mIU/mL
[2024-03-20] MEDS: cefTRIAXone sodium 1 GM VIAL IVPUSH (11:28)
--- NOTE | 2024-03-20 11:30 | PC.NURSE ---
pt alert, oriented, ambulatory. pain was reduced to about a 4 with pain medication but now pt is very tender again in her abdomen. medicated per orders with morphine. additonal labs - lactic and cultures drawn and sent to lab. rocephin given.
[2024-03-20 11:35] LABS: Lactic Acid 1.7 mmol/L (0.5-2.0)
[2024-03-20] MEDS: 0.9 % Sodium Chloride 1,000 ML 999 ML IV (14:12)
[2024-03-20] MEDS: fentaNYL citrate/PF 100 MCG/2 ML VIAL 50 MCG IVPUSH (14:12)
--- NOTE | 2024-03-20 15:42 | P.HPHOSP_ITS ---
History of Present Illness Date of Service: 03/20/24 Chief Complaint: Left flank pain 34-year-old female patient with past medical history significant for anemia, status post 3 C section, history of ovarian cyst recently moved from [place] to [place] presented to [place] ED due to left lower abdominal pain radiating to left flank with associated dysuria, burning and pressure upon urination has been voiding every few minutes small amount, associated with chills, denies nausea, no vomiting, no prior history of UTIs since pain was worsened today she came to the emergency room where she was noted to be afebrile, normal WBC count no tachypnea no tachycardia CT abdomen and pelvis showed findings concerning for developing acute pyelonephritis, and partially distended urinary bladder with mild wall thickening concerning for cystitis, urinalysis positive for large leukocyte esterase, greater than 50 WBC, but no bacteria noted, patient required multiple rounds of IV morphine, IV Dilaudid, IV fluids and IV ceftriaxone and now being admitted to [facility] due to left lower quadrant abdominal pain with radiating to left flank with positive left CVA tenderness. Review of Systems 2 Review of Systems: General no headache no dizziness no fever chills. CVS no chest pain, no palpitation. Respiratory no cough no sob Gastrointestinal no nausea no vomiting, no diarrhea Skin no rash Musculoskeletal no pain All other system reviewed and are negative PMFSH Pertinent family history: Mother has hypertension and diabetes Social History Household Members: Spouse and Children Housing: House Do you presently have visiting nurse or other home services: No Patient Tobacco Use Status: Never used Tobacco Smoked in Last 30 Days: No Use of substances other than those prescribed or required for medical reasons: No Currently Displaying Signs/Symptoms of Drug Intoxication Withdrawal: No Have you been hit, kicked, punched, or otherwise hurt by someone within the past year? If so, by whom?: No Do you feel safe in your current relationship?: Yes Is there a partner from a previous relationship who is making you feel unsafe now?: No Are you made to feel afraid or neglected: No Advance Directives: No Advance Directives Information Provided: Yes Do you have a plan to hurt others: No Plan Recently lost weight without trying: No Patient : No service: No Meds Allergies Allergy/AdvReac Type Severity Reaction Status Date / Time No Known Allergies Allergy Verified 03/20/24 08:00 Active Medications: Current Medications Acetaminophen (Acetaminophen 325 Mg Tablet) 650 mg PO Q6H PRN PRN Reason: Pain, Mild (Pain Scale 1-3), fever or headache Calcium Carbonate (Calcium Carbonate 750 Mg Tab.Chew) 750 mg PO Q4H PRN PRN Reason: Heartburn Lactated Ringer's (Lr) 1,000 mls @ 125 mls/hr IVCONT .Q8H [facility] Magnesium Hydroxide (Milk Of Magnesia 30 Ml Oral.Susp) 30 ml PO DAILY PRN PRN Reason: Constipation Melatonin (Melatonin 3 Mg Tablet) 6 mg PO BEDTIME PRN PRN Reason: Insomnia Ondansetron HCl (Ondansetron Hcl 4 Mg/2 Ml Vial) 4 mg IVPUSH Q8H PRN PRN Reason: Nausea and Vomiting Phenazopyridine HCl (Phenazopyridine Hcl 200 Mg Tablet) 200 mg PO TIDWM [facility] Stop: 03/22/24 12:01 Polyethylene Glycol (Polyethylene Glycol 3350 17 Gm Powd.Pack) 17 gm PO DAILY PRN PRN Reason: Constipation Sodium Chloride (0.9 % Sodium Chloride Flush 3 Ml Syringe) 3 ml IVFLUSH QSHIFT [facility] Home Medications ?Medication ?Instructions ?Recorded ?Confirmed ?Last Taken ?Type albuterol sulfate 90 mcg/actuation 2 puff inhalation Q4H PRN wheezing 03/20/24 03/20/24 Unknown History aerosol inhaler (Ventolin HFA) Physical Exam 2 Vital Signs and Narrative: Vital Signs: Last Vital Signs Temp 97.9 F 03/20/24 10:09 Pulse 60 03/20/24 14:00 Resp 18 03/20/24 14:00 BP 108/65 03/20/24 14:00 Pulse Ox 98 03/20/24 14:00 O2 Del Method Room Air 03/20/24 14:00 BMI result Body Mass Index 27.5 Const: Other: General awake alert x3 in mild distress due to pain Anicteric sclera Neck supple no JVD. CVS regular rate rhythm, Respiratory lungs clear to auscultation, no respiratory distress, no wheeze, no rhonchi. Gastrointestinal abdomen tenderness at suprapubic area, bowel sounds audible, no guarding , no rigidity. Extremities no edema. Left CVA tenderness Neuro non focal Skin no rash Psych appropriate affect Results Labs 03/20/24 08:29 03/20/24 08:29 Labs: Laboratory Results - last 24 hr 03/20/24 03/20/24 03/20/24 08:29 08:46 08:55 MCV 76.8 L MCH 24.3 L MCHC 31.6 RDW 15.4 Plt Count 334 MPV 8.7 L Immature Gran % (Auto) 0.3 Neut % (Auto) 65.2 Lymph % (Auto) 28.0 [place] % (Auto) 4.8 Eos % (Auto) 1.1 Baso % (Auto) 0.6 Lymph # (Auto) 2.2 [place] # (Auto) 0.4 Eos # (Auto) 0.1 Baso # (Auto) 0.1 Abs Immat Gran (auto) 0.02 Absolute Neuts (auto) 5.2 Absolute Nucleated RBC 0.000 Nucleated RBC % (auto) 0.0 APTT 33.5 Anion Gap 12 Estim Creat Clear Calc 96.0 Estimated GFR > 60 Random Glucose 106 Lactic Acid Calcium 9.6 Total Bilirubin 0.5 Direct Bilirubin 0.2 AST 33 H ALT 14 Alkaline Phosphatase 73 Total Protein 8.0 Albumin 4.1 Lipase 22 Beta HCG, Quant < 2 Urine Color Yellow Urine Appearance Cloudy Urine pH 6.0 Ur Specific [place] 1.010 Urine Protein Trace Urine Glucose (UA) Negative Urine Ketones Negative Urine Blood Small (1+) H Urine Nitrite Negative Ur Leukocyte Esterase Large (3+) H Urine RBC 6-10 H Urine WBC >50 H Ur Squamous Epith Cells 0-2 Urine Bacteria None Seen Hyaline Casts 0-2 Urine Test NEGATIVE 03/20/24 11:17 MCV MCH MCHC RDW Plt Count MPV Immature Gran % (Auto) Neut % (Auto) Lymph % (Auto) [place] % (Auto) Eos % (Auto) Baso % (Auto) Lymph # (Auto) [place] # (Auto) Eos # (Auto) Baso # (Auto) Abs Immat Gran (auto) Absolute Neuts (auto) Absolute Nucleated RBC Nucleated RBC % (auto) APTT Anion Gap Estim Creat Clear Calc Estimated GFR Random Glucose Lactic Acid 1.7 Calcium Total Bilirubin Direct Bilirubin AST ALT Alkaline Phosphatase Total Protein Albumin Lipase Beta HCG, Quant Urine Color Urine Appearance Urine pH Ur Specific [place] Urine Protein Urine Glucose (UA) Urine Ketones Urine Blood Urine Nitrite Ur Leukocyte Esterase Urine RBC Urine WBC Ur Squamous Epith Cells Urine Bacteria Hyaline Casts Urine Test Imaging Radiologist's Impressions: Impressions Abdomen/Pelvis CT 03/20/24 09:30 IMPRESSION: Ill-defined focus of hypoattenuation within the midpole of the left kidney with probable extension to the periphery of the cortex. There is no left renal calculus, perinephric fat stranding or foci of gas in the left renal collecting system. Findings may represent developing acute pyelonephritis the appropriate clinical context. Nonobstructing right renal calculus. Partially distended urinary bladder mild wall thickening. Correlate with urinalysis if there is clinical concern for cystitis. Electronically signed by: Eric Leigh MD 03/20/2024 10:10 AM [facility] Assessment and Plan (1) Acute pyelonephritis: Status: Acute Plan 34-year-old female with past medical history significant for chronic microcytic anemia, history of ovarian cyst not on home medication presented to [facility] with 2 days' history of left lower abdominal pain with radiation to left flank associated with chills, urinary burning, dysuria patient denies nausea, no vomiting, no history of recurrent UTIs workup in the ER suggestive of early pyelonephritis will be admitted to [facility] for pain management and IV antibiotics. Acute pyelonephritis Pain out proportion to CT abdomen findings that showed ill -defined focus of hypoattenuation within the midpole of the left kidney with probable extension to the periphery of the cortex.,no left renal calculus, perinephric fat stranding or foci of gas in the left renal collecting system. Findings may represent developing acute pyelonephritis the appropriate clinical context,.Partially distended urinary bladder mild wall thickening. IV ceftriaxone started on 03/20,ivf Follow urine and blood cultures No sepsis, with no fevers, normal WBC count, no tachypnea, no tachycardia, normal lactic acid Oxycodone and IV Dilaudid for pain management Pyridium 200 mg x 6 dosage Soft BP likely chronic not due to severe sepsis. Chronic microcytic anemia Likely iron deficiency anemia due to heavy periods Recommend outpatient OBGYN follow-up Intermittent asthma no acute exacerbation continue home inhalers Early ambulation Full code In my clinical judgment patient requires inpatient hospitalization for acute pain management with IV analgesics and IV antibiotics for early acute pyelonephritis. Quality Stroke Does the patient have a stroke diagnosis?: No VTE Prior VTE?: No VTE Risk Level:: Medical - low VTE Device Contraindication: Treatment Not Indicated VTE Drug Contraindication: Treatment Not Indicated
--- NOTE | 2024-03-20 15:58 | PHA.MEDREC ---
Addendum entered by Erick Woody RPh 03/20/24 16:05: med rec reviewed Original Note: Pharmacy Consult ? Medication Reconciliation Pharmacy has completed the medication reconciliation. Utilized bilingual interpreter services. Spoke to pt to confirm meds.
[2024-03-20] MEDS: Phenazopyridine HCL 200 MG TABLET PO (17:33)
[2024-03-20] MEDS: Lactated Ringers 1,000 ML 125 ML IVCONT (17:34)
--- NOTE | 2024-03-20 17:53 | PC.NURSE ---
pts pain is on and off. she says it comes and goes in waves. at this time she does not want any more pain medications
--- NOTE | 2024-03-20 19:05 | PC.NURSE ---
report received from Isatu Correia RN, assume care of pt at this time
[2024-03-20] MEDS: oxyCODONE HCl Immed Release 5 MG TABLET PO (23:36)
[2024-03-20] MEDS: Ketorolac Tromethamine 30 MG/ML VIAL IVPUSH (23:39)
[2024-03-21 03:49] VITALS: BP 94/48; PULSE 68; RESP 20; TEMP 36.1; O2SAT 99
[2024-03-21] MEDS: Acetaminophen 325 MG TABLET 975 MG PO (04:04)
[2024-03-21] MEDS: Lactated Ringers 1,000 ML 125 ML IVCONT ×3 (04:05→20:16)
[2024-03-21 07:43] VITALS: BP 93/49; PULSE 62; RESP 20; TEMP 37.4; O2SAT 98
[2024-03-21] MEDS: Phenazopyridine HCL 200 MG TABLET PO ×3 (08:55→17:48)
[2024-03-21] MEDS: HYDROmorphone HCl 0.5 MG/0.5 ML SYRINGE IVPUSH ×3 (08:55→17:48)
[2024-03-21] MEDS: ondansetron HCL 4 MG/2 ML VIAL IVPUSH (09:04)
[2024-03-21 11:36] VITALS: BP 115/64; PULSE 65; RESP 20; TEMP 36.3; O2SAT 100
[2024-03-21] MEDS: cefTRIAXone sodium 1 GM VIAL IVPUSH (11:58)
--- NOTE | 2024-03-21 12:58 | MHC.CM.PN ---
Pt lives with her and 2 sons, she is independent, no DME. She is SSO. She is on a waiting list at [facility] for a PCP, she recently moved here from [place]. DCP: home, self care, CM will follow for DC needs.
--- NOTE | 2024-03-21 13:53 | P.PNIM_ITS ---
Subjective Subjective Date of Service: 03/22/24 Interval History: Complaining of persistent suprapubic discomfort with radiation to left flank and back, pain with urination no fevers, no chills, no other acute events overnight tolerating diet no nausea no vomiting, no history of renal stones. Review of Systems All other symptoms reviewed and are negative Physical Exam 2 Vital Signs: Vital Signs: Last Vital Signs Temp 97.4 F 03/21/24 11:36 Pulse 65 03/21/24 11:36 Resp 20 03/21/24 11:36 BP 115/64 03/21/24 11:36 Pulse Ox 100 03/21/24 11:36 O2 Del Method Room Air 03/21/24 11:36 BMI result Body Mass Index 27.5 Const: Other: General awake alert x3 , no acute distress Anicteric sclera Neck supple no JVD. CVS regular rate rhythm, Respiratory lungs clear to auscultation, no respiratory distress, no wheeze, no rhonchi. Gastrointestinal abdomen tenderness at suprapubic area, bowel sounds audible, no guarding , no rigidity. Extremities no edema. Left CVA tenderness Neuro non focal Skin no rash Psych appropriate affect Objective Data Active Medications Acetaminophen (Acetaminophen 325 Mg Tablet) 975 mg PO Q6H PRN PRN Reason: Pain, Mild (Pain Scale 1-3), fever or headache Last Admin: 03/21/24 04:04 Dose: 975 mg Documented By: VALE Albuterol Sulfate (Albuterol Sulfate 90 Mcg 8 Gm Inhaler) 2 puff INHALE Q4H PRN PRN Reason: wheezing Calcium Carbonate (Calcium Carbonate 750 Mg Tab.Chew) 750 mg PO Q4H PRN PRN Reason: Heartburn Ceftriaxone Sodium (Ceftriaxone Sodium 1 Gm Vial) 1 gm IVPUSH Q24H KATIE Last Admin: 03/21/24 11:58 Dose: 1 gm Documented By: RUKHSANA Hydromorphone HCl (Hydromorphone Hcl 0.5 Mg/0.5 Ml Syringe) 0.5 mg IVPUSH Q4H PRN; Protocol PRN Reason: Pain, Severe (Pain Scale 7-10) Last Admin: 03/21/24 11:59 Dose: 0.5 mg Documented By: RUKHSANA Lactated Ringer's (Lr) 1,000 mls @ 125 mls/hr IVCONT .Q8H [facility] Last Admin: 03/21/24 11:59 Dose: 125 mls/hr Documented By: RUKHSANA Influenza Virus Vaccine (Flu Vacc [id number](6mos Up)/Pf 0.5 Ml Syringe) 0.5 ml IM .ONCE ONE Stop: 03/22/24 08:01 Magnesium Hydroxide (Milk Of Magnesia 30 Ml Oral.Susp) 30 ml PO DAILY PRN PRN Reason: Constipation Melatonin (Melatonin 3 Mg Tablet) 6 mg PO BEDTIME PRN PRN Reason: Insomnia Ondansetron HCl (Ondansetron Hcl 4 Mg/2 Ml Vial) 4 mg IVPUSH Q8H PRN PRN Reason: Nausea and Vomiting Last Admin: 03/21/24 09:04 Dose: 4 mg Documented By: RUKHSANA Oxycodone HCl (Oxycodone Hcl Immed Release 5 Mg Tablet) 5 mg PO Q6H PRN PRN Reason: Pain, Moderate(Pain Scale 4-6) Last Admin: 03/20/24 23:36 Dose: 5 mg Documented By: VALE Phenazopyridine HCl (Phenazopyridine Hcl 200 Mg Tablet) 200 mg PO TIDWM [facility] Stop: 03/22/24 12:01 Last Admin: 03/21/24 11:58 Dose: 200 mg Documented By: RUKHSANA Polyethylene Glycol (Polyethylene Glycol 3350 17 Gm Powd.Pack) 17 gm PO DAILY PRN PRN Reason: Constipation Sodium Chloride (0.9 % Sodium Chloride Flush 3 Ml Syringe) 3 ml IVFLUSH QSHIFT [facility] Last Admin: 03/21/24 08:57 Dose: Not Given Documented By: RUKHSANA Non-Admin Reason: IV Running Labs 03/20/24 08:29 03/20/24 08:29 Microbiology Microbiology Results: Microbiology 03/20/24 11:17 Blood Culture - Preliminary Blood - Venous No growth after 24 hours. 03/20/24 11:18 Blood Culture - Preliminary Blood - Venous No growth after 24 hours. 03/20/24 Unknown Urine Culture - Final Urine clean catch - Clean Catch Midstream No growth. Assessment and Plan (1) Acute pain: Status: Acute (2) Acute pyelonephritis: Status: Acute Plan 34-year-old female with past medical history significant for chronic microcytic anemia, history of ovarian cyst not on home medication presented to [facility] with 2 days' history of left lower abdominal pain with radiation to left flank associated with chills, urinary burning, dysuria patient denies nausea, no vomiting, no history of recurrent UTIs workup in the ER suggestive of early pyelonephritis will be admitted to [facility] for pain management and IV antibiotics. Acute pain left flank/ pyelonephritis Persistent Pain out proportion to CT abdomen findings that showed ill -defined focus of hypoattenuation within the mid pole of the left kidney with probable extension to the periphery of the cortex.,no left renal calculus, perinephric fat stranding or foci of gas in the left renal collecting system. Findings may represent developing acute pyelonephritis the appropriate clinical context,.Partially distended urinary bladder mild wall thickening. Continue current treatment with IV ceftriaxone started on 03/20, ivf urine and blood cultures negative times 24 hours No sepsis, with no fevers, normal WBC count, no tachypnea, no tachycardia, normal lactic acid Oxycodone and IV Dilaudid for pain management Pyridium 200 mg x 6 dosage Soft BP likely chronic not due to severe sepsis. Due to persistent pain will obtain renal ultrasound rule out obstruction and urology eval Chronic microcytic anemia Likely iron deficiency anemia due to heavy periods Recommend outpatient OBGYN follow-up Intermittent asthma no acute exacerbation continue home inhalers Early ambulation Full code In my clinical judgment patient requires continued inpatient hospitalization for acute pain management with IV analgesics and IV antibiotics for early acute pyelonephritis. Quality Stroke Does the patient have a stroke diagnosis?: No VTE Prior VTE?: No VTE Risk Level:: Medical - low VTE Device Contraindication: Treatment Not Indicated VTE Drug Contraindication: Treatment Not Indicated
[2024-03-21 14:42] VITALS: BP 102/66; PULSE 71; RESP 16; TEMP 36.8; O2SAT 99
[2024-03-21 19:41] VITALS: BP 103/60; PULSE 66; RESP 20; TEMP 36.2; O2SAT 99
[2024-03-21] MEDS: 0.9 % Sodium Chloride Flush 3 ML SYRINGE IVFLUSH (20:16)
[2024-03-21 23:51] VITALS: BP 100/55; PULSE 64; RESP 20; TEMP 36.6; O2SAT 97
[2024-03-22 03:35] VITALS: BP 107/60; PULSE 74; RESP 20; TEMP 36.5; O2SAT 96
[2024-03-22] MEDS: Lactated Ringers 1,000 ML 125 ML IVCONT (03:50)
[2024-03-22] MEDS: Acetaminophen 325 MG TABLET 975 MG PO ×2 (03:51→13:05)
--- NOTE | 2024-03-22 07:20 | PM.UROCN ---
History of Present Illness Consult details Consult date: 03/22/24 Narrative: 34 year old female admitted with Left flank pain, denies previous history of kidney stones or recurrent UTI's. 03/20/24CTAP with IV contrast readas right nonobstructing renal stone, possible left pyelonephritis. FU imaging--03/21/24- renal US - no hydronephrosis, no renal calculi. Urine c/s - No growth. Clinically patient is improving on IV Abx. Review of Systems Review of Systems: Yes all other systems are reviewed and are negative Constitutional: Constitutional: Reports no additional constitutional complaints Eyes: Eyes: Reports no additional eye complaints ENT: Reports system reviewed and no additional complaints, except as documented Cardiovascular: Cardiovascular: Reports no additional cardiovascular complaints Respiratory: Respiratory: Reports no additional respiratory complaints Gastrointestinal: Gastrointestinal: Reports no additional gastrointestinal complaints Genitourinary: Genitourinary: Reports as per HPI Musculoskeletal: Musculoskeletal: Reports no additional musculoskeletal complaints Integumentary/Breasts: Skin/Breast: Reports system reviewed and no additional complaints, except as docu Neurologic: Reports system reviewed and no additional complaints, except as documented Psychiatric: Psychiatric: Reports no additional psychiatric complaints Endocrine: Endocrine: Reports no additional endocrine complaints Hematologic/Lymphatic: Hematologic/Lymphatic: Reports no additional hematologic/lymphatic complaints Allergic/Immunologic: Allergic/Immunologic: Reports no additional allergic/immunologic complaints [facility] Social History Social History Household Members: Spouse and Children Housing: House Do you presently have visiting nurse or other home services: No Patient Tobacco Use Status: Never used Tobacco Smoked in Last 30 Days: No Use of substances other than those prescribed or required for medical reasons: No Currently Displaying Signs/Symptoms of Drug Intoxication Withdrawal: No Have you been hit, kicked, punched, or otherwise hurt by someone within the past year? If so, by whom?: No Do you feel safe in your current relationship?: Yes Is there a partner from a previous relationship who is making you feel unsafe now?: No Are you made to feel afraid or neglected: No Advance Directives: No Advance Directives Information Provided: Yes Do you have a plan to hurt others: No Plan Recently lost weight without trying: No Patient : No service: No Meds Allergies Allergy/AdvReac Type Severity Reaction Status Date / Time No Known Allergies Allergy Verified 03/20/24 08:00 Active Medications: Current Medications Acetaminophen (Acetaminophen 325 Mg Tablet) 975 mg PO Q6H PRN PRN Reason: Pain, Mild (Pain Scale 1-3), fever or headache Last Admin: 03/22/24 03:51 Dose: 975 mg Albuterol Sulfate (Albuterol Sulfate 90 Mcg 8 Gm Inhaler) 2 puff INHALE Q4H PRN PRN Reason: wheezing Calcium Carbonate (Calcium Carbonate 750 Mg Tab.Chew) 750 mg PO Q4H PRN PRN Reason: Heartburn Ceftriaxone Sodium (Ceftriaxone Sodium 1 Gm Vial) 1 gm IVPUSH Q24H [facility] Last Admin: 03/21/24 11:58 Dose: 1 gm Hydromorphone HCl (Hydromorphone Hcl 0.5 Mg/0.5 Ml Syringe) 0.5 mg IVPUSH Q4H PRN; Protocol PRN Reason: Pain, Severe (Pain Scale 7-10) Last Admin: 03/21/24 17:48 Dose: 0.5 mg Lactated Ringer's (Lr) 1,000 mls @ 125 mls/hr IVCONT .Q8H KATIE Last Admin: 03/22/24 03:50 Dose: 125 mls/hr Influenza Virus Vaccine (Flu Vacc [id number](6mos Up)/Pf 0.5 Ml Syringe) 0.5 ml IM .ONCE ONE Stop: 03/22/24 08:01 Magnesium Hydroxide (Milk Of Magnesia 30 Ml Oral.Susp) 30 ml PO DAILY PRN PRN Reason: Constipation Melatonin (Melatonin 3 Mg Tablet) 6 mg PO BEDTIME PRN PRN Reason: Insomnia Ondansetron HCl (Ondansetron Hcl 4 Mg/2 Ml Vial) 4 mg IVPUSH Q8H PRN PRN Reason: Nausea and Vomiting Last Admin: 03/21/24 09:04 Dose: 4 mg Oxycodone HCl (Oxycodone Hcl Immed Release 5 Mg Tablet) 5 mg PO Q6H PRN PRN Reason: Pain, Moderate(Pain Scale 4-6) Last Admin: 03/20/24 23:36 Dose: 5 mg Phenazopyridine HCl (Phenazopyridine Hcl 200 Mg Tablet) 200 mg PO TIDWM [facility] Stop: 03/22/24 12:01 Last Admin: 03/21/24 17:48 Dose: 200 mg Polyethylene Glycol (Polyethylene Glycol 3350 17 Gm Powd.Pack) 17 gm PO DAILY PRN PRN Reason: Constipation Sodium Chloride (0.9 % Sodium Chloride Flush 3 Ml Syringe) 3 ml IVFLUSH QSHIFT KATIE Last Admin: 03/21/24 20:16 Dose: 3 ml Home Medications ?Medication ?Instructions ?Recorded ?Confirmed ?Last Taken ?Type albuterol sulfate 90 mcg/actuation 2 puff inhalation Q4H PRN wheezing 03/20/24 03/20/24 Unknown History aerosol inhaler (Ventolin HFA) Physical Exam Vital Signs: Vital Signs: Last Vital Signs Temp 97.7 F 03/22/24 03:35 Pulse 74 03/22/24 03:35 Resp 20 03/22/24 03:35 BP 107/60 03/22/24 03:35 Pulse Ox 96 03/22/24 03:35 O2 Del Method Room Air 03/22/24 03:35 BMI result Body Mass Index 27.5 Const: General: cooperative, healthy appearing and no acute distress Orientation/consciousness: patient oriented x3 HEENT: Head: Yes normal to inspection, Yes normocephalic and Yes atraumatic Eyes: Conjunctivae: conjunctivae normal Neck: Neck: Yes normal visual inspection and Yes trachea midline Chest: Chest palpation & inspection: normal inspection of the chest Resp: Effort & Inspection: normal respiratory effort Cardio: Rate: regular rate GI: Inspection: Yes normal to inspection Palpation (GI): Soft to palpation Neuro: General: patient oriented x3 Extrem: General: No edema Psych: Appearance: grossly normal Results Labs 03/20/24 08:29 03/20/24 08:29 Labs: Urine 03/20/24 Range/Units 08:55 Urine Color Yellow Urine Appearance Cloudy Urine pH 6.0 (5.0-9.0) Ur Specific [place] 1.010 (1.005-1.025) Urine Protein Trace (Neg-Trace) mg/dL Urine Glucose (UA) Negative (Negative) mg/dL Urine Test NEGATIVE (NEGATIVE) Imaging Abdomen CT scan report/results: report reviewed and image reviewed CT scan - pelvis: report reviewed and image reviewed US - kidney/bladder: report reviewed and image reviewed Additional studies: Date of Service: 03/21/24 US RETROPERITONEAL LIMITED (RENAL ONLY) CLINICAL INFORMATION: Acute pain left flank. COMPARISON: None available. TECHNIQUE: Real-time ultrasound images of the bilateral kidneys. Limited visualization due to bowel gas. FINDINGS: RIGHT KIDNEY: 11.0 x 5.4 x 4.5 cm (SAG x AP x TRV). No hydronephrosis. No renal calculi. Renal cortical thickness is normal. Limited visualization. LEFT KIDNEY: 10.3 x 5.7 x 4.8 cm (SAG x AP x TRV). No hydronephrosis. No renal calculi. Renal cortical thickness is normal. Limited visualization. IMPRESSION: No hydronephrosis. No renal calculi. Date of Service: 03/20/24 CT ABDOMEN AND PELVIS WITH CONTRAST CLINICAL INFORMATION: Lower abdominal pain, left flank pain, rule out pyelonephritis COMPARISON: None available. TECHNIQUE: Multidetector volumetric images were obtained from the superior aspect of the liver through the pubic symphysis following administration 85 mL of Omnipaque 350 intravenous contrast. Sagittal and coronal reformatted images were obtained on the technologist's workstation. Oral contrast: No This CT examination was performed using dose optimization techniques as appropriate, variously including the following: *Automated exposure control *Adjustment of mA and/or kV according to patient size (this includes techniques or standardized protocols for targeted exams where dose is matched to indication/reason for exam; i.e. extremities or head) *Use of iterative reconstruction technique DLP: 607 mGy-cm FINDINGS: LUNG BASES: Mosaic attenuation of the visualized lung bases, left greater than right. LIVER, GALLBLADDER, AND BILIARY TREE: The liver is normal in size, shape, and attenuation. Small focus of hyperattenuation in the left hepatic lobe adjacent to the falciform ligament is incompletely characterized may represent focal fat infiltration, 3:26. Tiny simple cyst within the inferior right hepatic lobe, 3:33. No biliary ductal dilatation is present. The gallbladder is unremarkable with no evidence of radiopaque gallstones, gallbladder wall thickening, or obvious pericholecystic inflammatory changes. PANCREAS: Unremarkable. SPLEEN: Unremarkable. ADRENAL GLANDS: Unremarkable. KIDNEYS AND URETERS: The kidneys are normal in size, shape, and attenuation. No hydronephrosis or hydroureter. 0.5 cm nonobstructing calculus in the upper pole of the right kidney with a density of approximately 970 Hounsfield units. There is an ill-defined focus of hypoattenuation within the midpole of the left kidney with probable extension to the periphery of the cortex, 7:61. No perinephric fat stranding. No foci of gas within the left renal collecting system. BLADDER: Partially distended with mild wall thickening. GASTROINTESTINAL TRACT: Stomach and small bowel are nondilated. Large colonic stool burden, most pronounced in the cecum. Fecalization of distal ileal loops which can be seen with slow transit. The appendix is not visualized with likely surgical clip in the right lower quadrant. No colonic wall thickening or pericolonic inflammatory changes. ABDOMINAL WALL: Tiny fat-containing umbilical hernia. LYMPH NODES: No abdominopelvic adenopathy. VASCULAR: Abdominal aorta is normal in caliber. PELVIC VISCERA: The uterus is retroverted. Overall limited evaluation of adnexal structures on CT. 1.5 cm peripherally hyperattenuating structure within the right ovary, favored to represent a corpus luteal cyst. 2.5 cm simple right ovarian cyst/follicle. No dedicated follow-up imaging is required. 2.2 cm hypoattenuating structure in the left adnexa may represent the left ovary. OSSEOUS STRUCTURES: No acute osseous abnormality. IMPRESSION: Ill-defined focus of hypoattenuation within the midpole of the left kidney with probable extension to the periphery of the cortex. There is no left renal calculus, perinephric fat stranding or foci of gas in the left renal collecting system. Findings may represent developing acute pyelonephritis the appropriate clinical context. Nonobstructing right renal calculus. Partially distended urinary bladder mild wall thickening. Correlate with urinalysis if there is clinical concern for cystitis. Assessment and Plan (1) Acute pyelonephritis: Status: Acute (2) Left flank pain: Status: Acute Plan Patient improving with antibiotics, When medically stable. Send home with Bactrim DS one tab bid for 7 days No surgical intervention indicated at this time. outpatient follow up. Procedures Date of Service Date of Service: 03/22/24
[2024-03-22 07:39] VITALS: BP 107/61; PULSE 62; RESP 18; TEMP 36.1; O2SAT 97
[2024-03-22] MEDS: Phenazopyridine HCL 200 MG TABLET PO ×2 (08:03→11:06)
[2024-03-22] MEDS: HYDROmorphone HCl 0.5 MG/0.5 ML SYRINGE IVPUSH (08:09)
[2024-03-22] MEDS: cefTRIAXone sodium 1 GM VIAL IVPUSH (11:06)
[2024-03-22 11:59] VITALS: BP 105/61; PULSE 61; RESP 12; TEMP 36.5; O2SAT 97
[2024-03-22] MEDS: oxyCODONE HCl Immed Release 5 MG TABLET PO (13:05)
--- NOTE | 2024-03-22 14:00 | P.DS_ITS ---
DS: Providers Provider Date of Service: 03/22/24 Date of admission: 03/20/24 15:38 Date of discharge: 03/22/24 Primary care physician: None Physician Consults: 03/21/24 13:48 Consult to Urology Routine Consulting Provider: [facility] Reason for consultation: left renal colic no stone noted Has provider been notified: No DS: Diagnosis Discharge Diagnosis (1) Acute pain: Status: Acute (2) Acute pyelonephritis: Status: Acute DS: Summary Hospital Course Hospital Course: History of presenting illness: Date of Service: 03/20/24 Chief Complaint: Left flank pain 34-year-old female patient with past medical history significant for anemia, status post 3 C section, history of ovarian cyst recently moved from [place] to [place] presented to [facility] due to left lower abdominal pain radiating to left flank with associated dysuria, burning and pressure upon urination has been voiding every few minutes small amount, associated with chills, denies nausea, no vomiting, no prior history of UTIs since pain was worsened today she came to the emergency room where she was noted to be afebrile, normal WBC count no tachypnea no tachycardia CT abdomen and pelvis showed findings concerning for developing acute pyelonephritis, and partially distended urinary bladder with mild wall thickening concerning for cystitis, urinalysis positive for large leukocyte esterase, greater than 50 WBC, but no bacteria noted, patient required multiple rounds of IV morphine, IV Dilaudid, IV fluids and IV ceftriaxone and now being admitted to [facility] due to left lower quadrant abdominal pain with radiating to left flank with positive left CVA tenderness. Hospital course: 34-year-old female with past medical history significant for chronic microcytic anemia, history of ovarian cyst not on home medication presented to [facility] with 2 days' history of left lower abdominal pain with radiation to left flank associated with chills, urinary burning, dysuria patient denies nausea, no vomiting, no history of recurrent UTIs workup in the ER suggestive of early pyelonephritis patient admitted to [facility] for pain management and IV antibiotics. Acute left flank pain, patient admitted to medical floor due to acute suprapubic pain with radiation to left flank and mid back with associated chills, dysuria and burning, CT abdomen showed ill -defined focus of hypoattenuation within the mid pole of the left kidney with probable extension to the periphery of the cortex.,no left renal calculus, perinephric fat stranding or foci of gas in the left renal collecting system. Findings were suggestive of developing acute pyelonephritis and bladder was noted to be partially distended with mild wall thickening, therefore patient was treated with IV fluids, IV ceftriaxone and analgesics, patient to set of blood cultures and urine culture grew no bacteria, due to persistent pain out of proportion to findings and abdominal ultrasound was obtained that showed no hydronephrosis, no stones, patient's symptoms resolved with the above treatment therefore she is being discharged home on empi cheyanne treatment for early acute pyelonephritis for total 7 day course of antibiotic she is recommended to take Motrin for pain and drink plenty of fluids, she was also evaluated by Urology they recommend no further intervention. Chronic microcytic anemia Likely iron deficiency anemia due to heavy periods,Recommend outpatient OBGYN follow-up. Intermittent asthma no acute exacerbation noted recommend to continue home inhalers. Time Attestation Discharge Coordination Time (in mins): 36 Quality: Safe Use of Opioids Does Pt have an Active Cancer Diagnosis on the Problem List?: No Quality: Stroke Does the patient have a stroke diagnosis?: No Physical Exam Vital Signs: Vital Signs: Last Vital Signs Temp 97.7 F 03/22/24 11:59 Pulse 61 03/22/24 11:59 Resp 12 03/22/24 11:59 BP 105/61 03/22/24 11:59 Pulse Ox 97 03/22/24 11:59 O2 Del Method Room Air 03/22/24 07:39 BMI result Body Mass Index 27.5 Const: Other: General awake alert x3 , no acute distress Anicteric sclera Neck supple no JVD. CVS regular rate rhythm, Respiratory lungs clear to auscultation, no respiratory distress, no wheeze, no rhonchi. Gastrointestinal abdomen tenderness resolved. Extremities no edema. Neuro non focal Skin no rash Psych appropriate affect DS: Data Data Completed and Pending Labs on day of discharge: Preliminary micro results at discharge 03/20/24 11:17 Blood Culture - Preliminary Blood - Venous No growth after 48 hours. 03/20/24 11:18 Blood Culture - Preliminary Blood - Venous No growth after 48 hours. Discharge Plan Discharge Anticipated Discharge Date/Time: 03/22/24 13:55 Patient Disposition: Home, Self-Care Discharge Diagnosis: Acute left flank pain Referrals: Physician,None [Primary Care Provider] - 1 Week Discharge Medications: New cefuroxime axetil 250 mg tablet 250 mg PO BID Qty: 10 0RF Continued albuterol sulfate [Ventolin HFA] 90 mcg/actuation HFA aerosol inhaler 2 puff INHALATION Q4H PRN (Reason: wheezing) Discharge Orders: Discharge Order (Routine); Ordered 03/22/24 Ordered By: Tyler Boogie Diet: Advance to usual diet Activity on Discharge: As tolerated Stand Alone Forms: Patient Portal Discharge page Print Language: Yoruba Care Plan Goals: Acute left flank pain resolved, urine and blood culture showed no growth Take empiric antibiotics Cipro 250 mg 1 tablet twice daily for 5 more days Use Motrin for headache Drink plenty of fluids. Health Concerns: Intermittent asthma Plan of Treatment: Outpatient follow-up with primary care physician call for appointment Assessment: As above
--- NOTE | 2024-03-22 14:26 | MHC.CM.PN ---
Pt has been medically cleared, she will go home via family transport, plan is self care.
== END 2024-03-22 15:00 | disposition home or self-care (01) | DRG 463 ==
LOC: HO.ED 14:02 → HO.EDOVER 15:44 → HO.IMC 19:37
PROVIDERS: Admitting Provider Hospitalist; Emergency Provider Emergency Medicine Emergency Medical Services; Visit Provider Hospitalist
DX: N10 Acute pyelonephritis (principal); D50.9 Iron deficiency anemia, unspecified; J45.20 Mild intermittent asthma, uncomplicated; N92.0 Excessive and frequent menstruation with regular cycle; Z79.899 Other long term (current) drug therapy
CPT/HCPCS: 36415; 74177; 76775; 80048; 80076; 81001; 81003; 81025; 83605; 83690; 84702; 85025; 85730; 87040; 87086; 99285; J0696; J1171; J1885; J2270; J2405; J3010; J7120; Q9967

== ENCOUNTER → 2024-03-20 15:38 | Outpatient (BNV) | payer MEDICAID, SELFPAY | PROVIDERS: Admitting Provider Hospitalist; Emergency Provider Emergency Medicine Emergency Medical Services; Visit Provider Urology | DX: N10 Acute pyelonephritis (principal); R10.9 Unspecified abdominal pain | CPT/HCPCS: 99222 ==

== ENCOUNTER → 2024-03-20 15:38 | Outpatient (BNV) | payer MEDICAID, SELFPAY | PROVIDERS: Admitting Provider Hospitalist; Emergency Provider Emergency Medicine Emergency Medical Services; Visit Provider Hospitalist | DX: N10 Acute pyelonephritis (principal); R10.32 Left lower quadrant pain | CPT/HCPCS: 99222; 99232; 99239 ==

== ENCOUNTER 2024-04-05 10:48 | Emergency (ER) | payer OTHER, SELFPAY ==
--- NOTE | 2024-04-05 11:05 | ED.BACK ---
HPI - Back Pain/Injury General Chief Complaint: Abdominal Pain Stated Complaint: Back pain, nausea Related Data Home Medications ?Medication ?Instructions ?Recorded ?Confirmed albuterol sulfate 90 mcg/actuation 2 puff inhalation Q4H PRN wheezing 12/22/23 aerosol inhaler (Ventolin HFA) ferrous sulfate 325 mg (65 mg 325 mg PO QAM 12/22/23 iron) tablet,delayed release albuterol sulfate 90 mcg/actuation 2 puff inhalation Q4H PRN wheezing 03/20/24 03/20/24 aerosol inhaler (Ventolin HFA) Previous Rx's ?Medication ?Instructions ?Recorded cefuroxime axetil 250 mg tablet 250 mg PO BID #10 tabs 03/22/24 Allergies Allergy/AdvReac Type Severity Reaction Status Date / Time No Known Allergies Allergy Verified 04/05/24 11:09 [No Known Allergies*] [facility] Past Medical History Surgical History (System 03/31/24 @ 14:36 by Glo Monae) Hx of left knee surgery Social History Social History (System 03/31/24 @ 14:36 by Glo Monae) Household Members: Spouse and Children Housing: House Do you presently have visiting nurse or other home services: No Alcohol intake: never Patient Tobacco Use Status: Never used Tobacco Advance Directives: No Advance Directives Information Provided: No Do you have a plan to hurt others: No Plan service: No Current occupational status: unemployed Physical Exam Vital Signs: Vital Signs: Last Vital Signs Temp 98.2 F 04/05/24 11:06 Pulse 67 04/05/24 11:06 Resp 18 04/05/24 11:06 BP 108/63 04/05/24 11:06 Pulse Ox 98 04/05/24 11:06 O2 Del Method Room Air 04/05/24 11:06 BMI result Body Mass Index 27.1 Course Course Course Narrative: This is a Rapid Medical Examination (RME) performed by Talat Jc PA-C in triage. Full HPI, ROS, assessment and treatment plan per primary provider in the Main ED. 34 yo female with history of lower back pain, history of recent admission to [facility] 03/20-03/22 for acute pyelonephritis who presents to the ER for evaluation of left sided flank pain/back pain along with nausea and vomiting x2 that started yesterday. pain is constant. no fevers. no urinary symptoms. VSS in triage. she appears uncomfortable. nontender abdomen, +CVA tenderness on the left. Plan: labs and UA, upreg Reevaluation(s) Reevaluation #1: patient left the ER prior to completing treatment Medical Decision Making Lab Data 04/05/24 11:18 04/05/24 11:19 Labs: Lab Results 04/05/24 04/05/24 Range/Units 11:18 11:19 WBC 6.7 (4.8-10.8) X10*3/uL RBC 4.33 (4.20-5.50) X10*6/uL Hgb 10.5 L (12.0-16.0) g/dl Hct 33.8 L (37.0-47.0) % MCV 78.1 L (80.0-98.0) fL MCH 24.2 L (27.0-33.0) pg MCHC 31.1 (31.0-35.0) g/dl RDW 15.8 (11.0-16.0) % Plt Count 380 (160-400) X10*3/uL MPV 9.0 L (9.4-12.3) fL Immature Gran % (Auto) 0.1 (0.0-0.4) % Neut % (Auto) 52.8 (45-73) % Lymph % (Auto) 40.1 H (20-40) % [place] % (Auto) 4.5 (2-11) % Eos % (Auto) 1.6 (0-4) % Baso % (Auto) 0.9 (0-2) % Lymph # (Auto) 2.7 (1.2-4.9) X10*3/uL [place] # (Auto) 0.3 (0.1-1.2) X10*3/uL Eos # (Auto) 0.1 (0.0-0.4) X10*3/uL Baso # (Auto) 0.1 (0.0-0.2) X10*3/uL Abs Immat Gran (auto) 0.01 (0.00-0.03) X10*3/uL Absolute Neuts (auto) 3.5 (2.0-8.3) x10*3/uL Absolute Nucleated RBC 0.000 (0.0-0.012) X10*3/uL Nucleated RBC % (auto) 0.0 (0.0-0.2) /100WBC Sodium 137 (135-145) mmol/L Potassium 4.4 (3.3-5.1) mmol/L Chloride 107 (96-108) mmol/L Carbon Dioxide 26 (22-29) mmol/L Anion Gap 8 L (12-20) BUN 9 (9-16) mg/dL Creatinine 0.81 (0.5-1.4) mg/dL Estim Creat Clear Calc 100.1 Estimated GFR > 60 Random Glucose 95 (60-115) mg/dL Calcium 9.2 (8.4-10.2) mg/dL Magnesium 2.4 (1.6-2.6) mg/dL Total Bilirubin 0.5 (0.0-1.0) mg/dL Direct Bilirubin 0.1 (0.0-0.5) mg/dL AST 23 (5-31) U/L ALT 16 (0-31) U/L Alkaline Phosphatase 77 (39-117) U/L Total Protein 7.6 (6.5-8.0) g/dL Albumin 4.1 (3.5-5.0) g/dL Urine Color Yellow Urine Appearance Clear Urine pH 6.5 (5.0-9.0) Ur Specific [place] 1.020 (1.005-1.025) Urine Protein Negative (Neg-Trace) mg/dL Urine Glucose (UA) Negative (Negative) mg/dL Urine Ketones Negative (Negative) mg/dL Urine Blood Negative (Negative) Urine Nitrite Negative (Negative) Ur Leukocyte Esterase Negative (Negative) Urine Test NEGATIVE (NEGATIVE) Discharge Plan Discharge Clinical Impression: Low back pain Patient Disposition: Left W/O Completing Treatment Prescriptions: No Action albuterol sulfate [Ventolin HFA] 90 mcg/actuation HFA aerosol inhaler 2 puff INHALATION Q4H PRN (Reason: wheezing) cefuroxime axetil 250 mg tablet 250 mg PO BID Qty: 10 0RF albuterol sulfate [Ventolin HFA] 90 mcg/actuation HFA aerosol inhaler 2 puff inhalation Q4H PRN (Reason: wheezing) ferrous sulfate 325 mg (65 mg iron) tablet,delayed release (DR/EC) 325 mg PO QAM Print Language: Chinese
[2024-04-05 11:06] VITALS: BP 108/63; PULSE 67; RESP 18; TEMP 36.8; O2SAT 98; BMI 27.1
[2024-04-05 11:26] LABS: MANUAL DIFF FLAG NO
[2024-04-05 11:29] LABS: Appearance Urine Clear; Color Urine Yellow; Glucose Urine UA Negative (Negative); Leukocyte Esterase Urine Negative (Negative); Nitrite Urine Negative (Negative); PH 6.5 (5.0-9.0); Urine Blood Negative (Negative); Urine Ketones Negative (Negative); Urine Protein Negative (Neg-Trace)
[2024-04-05 11:29] LABS: Basophils Absolute Auto 0.1 X10*3/uL (0.0-0.2); Basophils Percent Auto 0.9 % (0-2); Eosinophils Absolute Auto 0.1 X10*3/uL (0.0-0.4); Eosinophils Percent Auto 1.6 % (0-4); Hematocrit 33.8 % (37.0-47.0); Hemoglobin 10.5 g/dl (12.0-16.0); Imm Gran Abs Auto 0.01 X10*3/uL (0.00-0.03); Imm Gran Pct Auto 0.1 % (0.0-0.4); Lymphocytes Absolute Auto 2.7 X10*3/uL (1.2-4.9); Lymphocytes Percent Auto 40.1 % (20-40); Mean Corpuscular HGB Conc 31.1 g/dl (31.0-35.0); Mean Corpuscular Hemoglobin 24.2 pg (27.0-33.0); Mean Corpuscular Volume 78.1 fL (80.0-98.0); Monocytes Absolute Auto 0.3 X10*3/uL (0.1-1.2); Monocytes Percent Auto 4.5 % (2-11); Neutrophils Absolute Auto 3.5 x10*3/uL (2.0-8.3); Neutrophils Percent Auto 52.8 % (45-73); Platelet Count 380 X10*3/uL (160-400); Red Blood Count 4.33 X10*6/uL (4.20-5.50); Red Cell Distribution Width 15.8 % (11.0-16.0); White Blood Count 6.7 X10*3/uL (4.8-10.8)
[2024-04-05 11:30] LABS: UPreg QC Valid YES
[2024-04-05 11:31] LABS: Urine Pregnancy NEGATIVE (NEGATIVE)
[2024-04-05 11:45] LABS: Alanine Aminotransferase 16 U/L (0-31); Albumin Level 4.1 g/dL (3.5-5.0); Alkaline Phosphatase 77 U/L (39-117); Anion Gap 8 (12-20); Aspartate Amino Transferase 23 U/L (5-31); Bilirubin Direct 0.1 mg/dL (0.0-0.5); Bilirubin Total 0.5 mg/dL (0.0-1.0); Blood Urea Nitrogen 9 mg/dL (9-16); Calcium 9.2 mg/dL (8.4-10.2); Carbon Dioxide 26 mmol/L (22-29); Chloride 107 mmol/L (96-108); Creatinine Clr Calc Pharmacy 100.1; Estimated Glomerular Filt Rate > 60; Glucose Random 95 mg/dL (60-115); Magnesium 2.4 mg/dL (1.6-2.6); Potassium 4.4 mmol/L (3.3-5.1); Sodium 137 mmol/L (135-145); Total Protein 7.6 g/dL (6.5-8.0)
== END 2024-04-05 19:40 | disposition left against medical advice (07) ==
PROVIDERS: Physician Assistant; Emergency Provider Emergency Medicine Emergency Medical Services
DX: M54.50 Low back pain, unspecified (principal); R11.2 Nausea with vomiting, unspecified
CPT/HCPCS: 36415; 80048; 80076; 81003; 81025; 83735; 85025; 99282; 99283

== ENCOUNTER 2024-04-28 10:01 | Outpatient (REF) | payer OTHER, SELFPAY | END 2024-04-28 10:02 | disposition home or self-care (01) | LOC: HO.HOSX 10:01 | PROVIDERS: Visit Provider Physician Assistant | DX: Z13.89 Encounter for screening for other disorder (principal) ==

== ENCOUNTER 2024-05-05 12:20 | Emergency (ER) | payer OTHER, SELFPAY ==
[2024-05-05 12:30] VITALS: BP 114/76; PULSE 64; RESP 18; TEMP 37.3; O2SAT 100; BMI 26.7
--- NOTE | 2024-05-05 12:30 | ED.DIZZY ---
HPI - Dizziness General Chief Complaint: Dizziness Stated Complaint: Dizziness, fatigue Time Seen by Provider: 05/05/24 12:50 Source: patient and learning disabilities specialist Mode of arrival: ambulatory Limitations: language barrier History of Present Illness ED Provider: Magali MORIN Narrative: Patient is a 34-year-old Northern Irish speaking female with history of iron deficiency anemia, recently treated for pyelonephritis presenting to the emergency department with complaint of one week of dizziness, intermittent headaches, fatigue, and nausea. Describes dizziness as room spinning, worse with head movement and position changes. Does not feel dizzy at this time. States that she just finished her menstrual period. Reports history of low iron levels requiring iron supplements. Denies abdominal pain, vomiting, diarrhea, or constipation. Does report decreased appetite. Denies changes in vision, photophobia. Denies any episodes of syncope. Denies fevers. Denies urinary symptoms. MD elicited complaint: dizziness Pertinent past history: anemia Onset (ago): week(s) Timing: gradual onset Description: room spinning Context: change in body position History of similar symptoms: Yes Related Data Home Medications ?Medication ?Instructions ?Recorded ?Confirmed albuterol sulfate 90 mcg/actuation 2 puff inhalation Q4H PRN wheezing 12/22/23 aerosol inhaler (Ventolin HFA) ferrous sulfate 325 mg (65 mg 325 mg PO QAM 12/22/23 iron) tablet,delayed release albuterol sulfate 90 mcg/actuation 2 puff inhalation Q4H PRN wheezing 03/20/24 03/20/24 aerosol inhaler (Ventolin HFA) Previous Rx's ?Medication ?Instructions ?Recorded cefuroxime axetil 250 mg tablet 250 mg PO BID #10 tabs 03/22/24 ferrous sulfate 324 mg (65 mg 324 mg PO DAILY #30 tabs 05/05/24 iron) tablet,delayed release Allergies Allergy/AdvReac Type Severity Reaction Status Date / Time No Known Allergies Allergy Verified 05/05/24 12:32 [No Known Allergies*] Review of Systems Review of Systems: As per HPI Yes all other systems are reviewed and are negative Constitutional: Constitutional: Reports as per HPI PMFSH Past Medical History Surgical History (System 03/31/24 @ 14:36 by Glo Monae) Hx of left knee surgery Social History Social History (System 03/31/24 @ 14:36 by Glo Monae) Household Members: Spouse and Children Housing: House Do you presently have visiting nurse or other home services: No Alcohol intake: never Patient Tobacco Use Status: Never used Tobacco Advance Directives: No Advance Directives Information Provided: Yes Do you have a plan to hurt others: No Plan service: No Current occupational status: unemployed Physical Exam Vital Signs: Vital Signs: Last Vital Signs Temp 99.2 F 05/05/24 12:30 Pulse 64 05/05/24 14:31 Resp 18 05/05/24 12:30 BP 107/67 05/05/24 14:31 Pulse Ox 100 05/05/24 12:30 O2 Del Method Room Air 05/05/24 12:30 BMI result Body Mass Index 26.7 Vital signs have been reviewed and appear to be correct. Blood pressure normal. Heart rate normal. Respiratory rate normal. Temperature normal. Oxygen saturation normal. Const: General: cooperative, healthy appearing and no acute distress Orientation/consciousness: oriented to person, oriented to place, oriented to time and patient oriented x3 Limitations: no limitations HEENT: Head: Yes normocephalic and Yes atraumatic Ears: external ears normal General nose exam: Normal external nose present Face and sinus: Yes face symmetric Mouth: oropharynx normal and moist mucous membranes Throat: Yes uvula midline Eyes: Pupils: Equal, round and reactive pupils present Neck: Neck: Yes normal visual inspection, Yes no meningeal signs and Yes supple Resp: Effort & Inspection: normal respiratory effort and able to speak in complete sentences Auscultation: clear to auscultation bilaterally Cardio: Rate: regular rate Rhythm: regular rhythm Heart sounds: S1 normal heart sound present and S2 normal heart sound present GI: Palpation (GI): Soft to palpation and nontender Auscultation: normoactive bowel sounds : General: Yes no CVA tenderness Back/Spine/Pelvis: Back: no CVA tenderness Skin: General skin exam: elasticity normal and turgor normal Neuro: General: oriented to person, oriented to place, oriented to time, patient oriented x3, gait normal, tone normal, moves all extremities, Normal light touch and pain sensation, no meningeal signs, no focal motor deficits, CN's II-XI intact bilaterally, deep tendon reflexes 2+ bilaterally and No [place] Hallpike (negative bilaterally) Cranial nerves: Yes Equal, round and reactive pupils present Cognition (Neuro): normal cognition Motor exam (neuro): 5/5 motor strength present throughout, Pronator motor function not present, Normal motor muscle tone present throughout and Motor abnormalities not present Sensory Exam: Normal double simultaneous stimulation for sensation Coordination: [id number] test normal, [id number] test normal and Romberg test negative Extrem: General: Yes full ROM, Yes no pedal edema and Yes no calf tenderness Psych: Mental Status: mental status grossly normal Affect: normal affect Thought process: Normal thought process present Course Course Course Narrative: This is a Rapid Medical Examination (RME) performed by Talat Jc PA-C in triage. Full HPI, ROS, assessment and treatment plan per primary provider in the Main ED. 34 yo female with history of anemia who presents to the ER for evaluation of dizziness, fatigue, palpitations for the last 1 week. dizziness is worse with position changes and comes with nausea. no chest pain or abdominal pain. endorses poor PO intake. LMP finished yesterday. VSS in triage. steady gait Plan: labs, EKG, viral swab, orthostatics Medical Decision Making Medical Decision Making [facility] Narrative: Patient is a 34-year-old Northern Irish speaking female with history of iron deficiency anemia, recently treated for pyelonephritis presenting to the emergency department with complaint of one week of dizziness, intermittent headaches, fatigue, and nausea. On exam patient is awake, A+Ox3, VS WNL, afebrile, normal neurological exam without focal deficits, physical exam findings as above. Given reported symptoms and physical exam findings, initial differential includes anemia, electrolyte abnormality, viral illness, BPPV, vestibular neuritis. Do not suspect cerebellar stroke. Labs notable for anemia consistent with baseline, no leukocytosis, negative troponin, normal TSH, ferritin low. Urinalysis is without evidence of infection, negative. No orthostatic intolerance noted. Symptoms likely due to iron deficiency anemia, will send prescription for iron supplement, follow up with PCP. Return precautions discussed at bedside. Patient verbalized understanding of and agreement with plan. In-person procedures rn was utilized for all interactions, assessments, and discussions. Differential Diagnosis Differential Diagnoses: The differential diagnosis associated with the presentation includes As per [facility] Admission/Observation Consideration of admission/observation: Escalation of care including admission/observation considered Patient would have been admitted to the hospital had their work up had any findings where hospital admission was appropriate and their clinical presentation warranted hospital admission. Lab Data [facility] Lab Attestation statement: I reviewed the patient's lab results. As per [facility] 05/05/24 12:47 05/05/24 12:47 Labs: Lab Results 05/05/24 05/05/24 Range/Units 12:47 14:34 WBC 6.4 (4.8-10.8) X10*3/uL RBC 4.17 L (4.20-5.50) X10*6/uL Hgb 10.3 L (12.0-16.0) g/dl Hct 32.5 L (37.0-47.0) % MCV 77.9 L (80.0-98.0) fL MCH 24.7 L (27.0-33.0) pg MCHC 31.7 (31.0-35.0) g/dl RDW 15.2 (11.0-16.0) % Plt Count 336 (160-400) X10*3/uL MPV 9.0 L (9.4-12.3) fL Immature Gran % (Auto) 0.2 (0.0-0.4) % Neut % (Auto) 57.9 (45-73) % Lymph % (Auto) 35.7 (20-40) % [place] % (Auto) 3.7 (2-11) % Eos % (Auto) 1.4 (0-4) % Baso % (Auto) 1.1 (0-2) % Lymph # (Auto) 2.3 (1.2-4.9) X10*3/uL [place] # (Auto) 0.2 (0.1-1.2) X10*3/uL Eos # (Auto) 0.1 (0.0-0.4) X10*3/uL Baso # (Auto) 0.1 (0.0-0.2) X10*3/uL Abs Immat Gran (auto) 0.01 (0.00-0.03) X10*3/uL Absolute Neuts (auto) 3.7 (2.0-8.3) x10*3/uL Absolute Nucleated RBC 0.000 (0.0-0.012) X10*3/uL Nucleated RBC % (auto) 0.0 (0.0-0.2) /100WBC Sodium 139 (135-145) mmol/L Potassium 4.1 (3.3-5.1) mmol/L Chloride 110 H (96-108) mmol/L Carbon Dioxide 24 (22-29) mmol/L Anion Gap 9 L (12-20) BUN 7 L (9-16) mg/dL Creatinine 0.87 (0.5-1.4) mg/dL Estim Creat Clear Calc 92.6 Estimated GFR > 60 Random Glucose 99 (60-115) mg/dL Calcium 9.2 (8.4-10.2) mg/dL Magnesium 2.1 (1.6-2.6) mg/dL Ferritin 5 L (10-122) ng/mL Total Bilirubin 0.3 (0.0-1.0) mg/dL Direct Bilirubin 0.1 (0.0-0.5) mg/dL AST 19 (5-31) U/L ALT 14 (0-31) U/L Alkaline Phosphatase 75 (39-117) U/L Troponin I High Sens < 2.7 (<3.5-17.0) ng/L Total Protein 7.4 (6.5-8.0) g/dL Albumin 4.0 (3.5-5.0) g/dL TSH 1.86 (0.32-4.0) uIU/mL Urine Color Yellow Urine Appearance Clear Urine pH 6.5 (5.0-9.0) Ur Specific [place] 1.015 (1.005-1.025) Urine Protein Negative (Neg-Trace) mg/dL Urine Glucose (UA) Negative (Negative) mg/dL Urine Ketones Negative (Negative) mg/dL Urine Blood Negative (Negative) Urine Nitrite Negative (Negative) Ur Leukocyte Esterase Negative (Negative) Urine Test NEGATIVE (NEGATIVE) Influenza Type A (PCR) NEGATIVE (Negative) Influenza Type B (PCR) NEGATIVE (Negative) RSV RNA Qual (PCR) NEGATIVE (Negative) SARS-CoV-2 RNA (RT-PCR) NEGATIVE (Negative) External Record Review External record reviewed: Inpatient record, Office record and Outpatient record Prescription Management I considered prescription management with: Other Discharge Plan Discharge Clinical Impression: Iron deficiency anemia Patient Disposition: Home, Self-Care Instructions: Iron Rich Diet (ED), Iron Deficiency Anemia (ED) Additional Instructions: You were evaluated in the emergency department today for dizziness and fatigue. Your iron level was found to be low. You are being prescribed an iron supplement, take this as prescribed. Follow up with your primary care provider so that you can have your iron levels rechecked. Return for new or concerning symptoms. Prescriptions: New ferrous sulfate 324 mg (65 mg iron) tablet,delayed release (DR/EC) 324 mg PO DAILY Qty: 30 0RF No Action albuterol sulfate [Ventolin HFA] 90 mcg/actuation HFA aerosol inhaler 2 puff INHALATION Q4H PRN (Reason: wheezing) cefuroxime axetil 250 mg tablet 250 mg PO BID Qty: 10 0RF albuterol sulfate [Ventolin HFA] 90 mcg/actuation HFA aerosol inhaler 2 puff inhalation Q4H PRN (Reason: wheezing) ferrous sulfate 325 mg (65 mg iron) tablet,delayed release (DR/EC) 325 mg PO QAM Print Language: Northern Irish
--- NOTE | 2024-05-05 12:32 | ECG_ITS ---
Test Reason : palpitations Blood Pressure : / mmHG Vent. Rate : 059 BPM Atrial Rate : 059 BPM P-R Int : 168 ms QRS Dur : 066 ms QT Int : 448 ms P-R-T Axes : 027 026 028 degrees QTc Int : 443 ms Sinus bradycardia Otherwise normal ECG No significant changes when compared with the previous EKG of 07 may 2017 Referred By: Simran Jc Electronically Signed By:EZ HADLEY
[2024-05-05 12:52] LABS: Basophils Absolute Auto 0.1 X10*3/uL (0.0-0.2); Basophils Percent Auto 1.1 % (0-2); Eosinophils Absolute Auto 0.1 X10*3/uL (0.0-0.4); Eosinophils Percent Auto 1.4 % (0-4); Hematocrit 32.5 % (37.0-47.0); Hemoglobin 10.3 g/dl (12.0-16.0); Imm Gran Abs Auto 0.01 X10*3/uL (0.00-0.03); Imm Gran Pct Auto 0.2 % (0.0-0.4); Lymphocytes Absolute Auto 2.3 X10*3/uL (1.2-4.9); Lymphocytes Percent Auto 35.7 % (20-40); MANUAL DIFF FLAG NO; Mean Corpuscular HGB Conc 31.7 g/dl (31.0-35.0); Mean Corpuscular Hemoglobin 24.7 pg (27.0-33.0); Mean Corpuscular Volume 77.9 fL (80.0-98.0); Monocytes Absolute Auto 0.2 X10*3/uL (0.1-1.2); Monocytes Percent Auto 3.7 % (2-11); Neutrophils Absolute Auto 3.7 x10*3/uL (2.0-8.3); Neutrophils Percent Auto 57.9 % (45-73); Platelet Count 336 X10*3/uL (160-400); Red Blood Count 4.17 X10*6/uL (4.20-5.50); Red Cell Distribution Width 15.2 % (11.0-16.0); White Blood Count 6.4 X10*3/uL (4.8-10.8)
[2024-05-05 13:08] LABS: Alanine Aminotransferase 14 U/L (0-31); Alkaline Phosphatase 75 U/L (39-117); Anion Gap 9 (12-20); Aspartate Amino Transferase 19 U/L (5-31); Bilirubin Direct 0.1 mg/dL (0.0-0.5); Bilirubin Total 0.3 mg/dL (0.0-1.0); Blood Urea Nitrogen 7 mg/dL (9-16); Calcium 9.2 mg/dL (8.4-10.2); Carbon Dioxide 24 mmol/L (22-29); Chloride 110 mmol/L (96-108); Creatinine Clr Calc Pharmacy 92.6; Estimated Glomerular Filt Rate > 60; Glucose Random 99 mg/dL (60-115); Magnesium 2.1 mg/dL (1.6-2.6); Potassium 4.1 mmol/L (3.3-5.1); Sodium 139 mmol/L (135-145); Total Protein 7.4 g/dL (6.5-8.0)
[2024-05-05 13:15] LABS: Troponin-I High Sensitivity < 2.7 ng/L (<3.5-17.0)
[2024-05-05 13:28] LABS: TSH reflex Free T4 1.86 uIU/mL (0.32-4.0)
[2024-05-05 13:34] LABS: Influenza A PCR NEGATIVE (Negative); Influenza B PCR NEGATIVE (Negative); Resp Syncy Virus RNA Qual PCR NEGATIVE (Negative); SARS COV2 PCR INHOUSE NEGATIVE (Negative)
[2024-05-05 14:20] LABS: Ferritin 5 ng/mL (10-122)
[2024-05-05 14:29] VITALS: BP 106/69; PULSE 62
[2024-05-05 14:31] VITALS: BP 107/67; BP 107/77; PULSE 58; PULSE 64
[2024-05-05 14:41] LABS: Appearance Urine Clear; Color Urine Yellow; Glucose Urine UA Negative (Negative); Leukocyte Esterase Urine Negative (Negative); Nitrite Urine Negative (Negative); PH 6.5 (5.0-9.0); Specific Gravity - Urine 1.015 (1.005-1.025); UPreg QC Valid YES; Urine Blood Negative (Negative); Urine Ketones Negative (Negative); Urine Pregnancy NEGATIVE (NEGATIVE); Urine Protein Negative (Neg-Trace)
[2024-05-05 15:01] VITALS: BP 120/68; PULSE 64; RESP 16; TEMP 36.8; O2SAT 98
== END 2024-05-05 15:02 | disposition home or self-care (01) ==
PROVIDERS: Physician Assistant; Registered Nurse Emergency; Emergency Provider Emergency Medicine Emergency Medical Services
DX: D50.9 Iron deficiency anemia, unspecified (principal); R42 Dizziness and giddiness; Z03.818 Encounter for observation for suspected exposure to other biological agents ruled out; J45.909 Unspecified asthma, uncomplicated
CPT/HCPCS: 0241U; 36415; 80048; 80076; 81003; 81025; 82728; 83735; 84443; 84484; 85025; 93005; 99283; 99285

== ENCOUNTER → 2024-05-05 12:32 | Outpatient (BNV) | payer OTHER, SELFPAY | PROVIDERS: Emergency Provider Emergency Medicine Emergency Medical Services; Visit Provider Internal Medicine | DX: R00.2 Palpitations (principal); R00.1 Bradycardia, unspecified | CPT/HCPCS: 93010 ==

== ENCOUNTER 2024-05-22 18:21 | Outpatient (REF) | payer OTHER, SELFPAY ==
--- NOTE | ~2024-05-22 | MR_ITS ---
CLINICAL HISTORY: M23.92 - Unspecified internal derangement of left knee MR left knee without gadolinium Comparison: One view x-ray of the knees from 12/22/2023 Findings: Abnormal signal concerning for acute tear and/or re-injury involving the posterior area of medial meniscus with horizontal tear of the posterior aspect of the posterior body extending to posterior horn of medial meniscus. With likely previous repair and/or partial meniscectomy. No tear of the lateral meniscus. Small articular surface cartilage defect with small subjacent bone contusion measures 0.4 cm in the medial patellar facet adjacent to the posterior medial meniscus tear. Mild/minimal chondromalacia of the patellar facets. Mild-minimal dorsal posterior cartilage loss of the lateral compartment. Anterior cruciate ligament is intact. Posterior cruciate ligament is intact. No tears collateral ligaments. Extensor mechanism is intact. Small effusion present. Mild subcutaneous edema. IMPRESSION: 1. Horizontal medial meniscus tear (posterior). 2. Mild cartilage loss, including small focus adjacent to the medial meniscus tear. This document has been electronically signed by: Ambrocio Silvestre MD on 05/23/2024 19:13:14
== END 2024-05-22 18:22 | disposition home or self-care (01) ==
LOC: HO.MRI 18:21
PROVIDERS: Visit Provider Physician Assistant
DX: M23.92 Unspecified internal derangement of left knee (principal)
CPT/HCPCS: 73721

== ENCOUNTER → 2024-05-22 18:21 | Outpatient (BNV) | payer OTHER, SELFPAY | PROVIDERS: Visit Provider Radiology Neuroradiology | DX: M23.92 Unspecified internal derangement of left knee (principal) | CPT/HCPCS: 73721 ==

== ENCOUNTER 2024-05-27 07:51 | Outpatient (AMB) | payer OTHER, SELFPAY ==
--- NOTE | 2024-05-27 08:05 | MHC.PC.OV ---
Vital Signs 05/27/24 08:07 Height 5 ft 5 in Weight 170 lb 4 oz BMI 28.3 BP 110/64 Blood Pressure Location Lt brachial Position Sitting Pulse 75 Pulse Source Pulse Oximeter Pulse Oximetry (%) 99 Oxygen Delivery Method Room Air Intake Visit Reasons: establish care Intake Note: Patient is a new patient here to establish care for Asthma, Anemia. Transferring care from [place]. Medical records have not been requested and have not received. Pt decline flu shot today. Binding Cutter Synthetic Cloth Required: Yes Binding Cutter Synthetic Cloth Language: Frame Repairer Name: Ailin [id number] Information Interpreted: non-clinical & clinical Regional Controller: Not Required per policy Accompanied by: Self / Same As Patient Allergies No Known Allergies [No Known Allergies*] Allergy (Verified 05/27/24 08:29) Medication List - Last Reconciled 05/27/24 by Katie Anderson PA-C albuterol sulfate 90 mcg/actuation (Ventolin HFA) 2 puffs inhalation Q4H PRN ferrous sulfate 324 mg PO DAILY Tobacco use date assessed: 05/27/24 Dental Screening Dental Screen Date: 05/27/24 Did you have a dental visit in the last 12 months?: No Did you have a dental problem in the last 6 months where you did not have access to dental care?: No Was dental information given to patient?: Patient has dentist HPI establish care HPI Details 34-year-old female coming to the office for 1st time. Patient has a history of iron-deficiency anemia, recently treated for pyelonephritis.? In review of the notes patient was seen in [facility] 05/05/2024 for fatigue and dizziness iron levels found to be low prescribed and iron supplement advised to follow up with PCP.?Patient completed knee MRI 05/23/2024 showing horizontal medial meniscus tear and with mild cartilage loss.?She has been following with orthopedics for left knee pain. historic interpreter [id number] was used for the duration of this visit. Patient tells us today she has a history of asthma but rarely uses her inhaler. She has been having a lot of left knee pain that has been worsening. She has had knee injections in the past and surgery but does continue to have pain. She uses tylenol and Ibuprofen for her pain with very mild relief. She was previously having lightheadedness and dizziness but since starting the iron supplement has noticed an improvement in her symptoms. Still continues to feel fatigued. Otherwise no concerns. PFSH Medical History (Updated 05/27/24 @ 08:51 by Katie Anderson PA-C) History of cyst of breast Surgical History History of appendectomy History of cystostomy History of tubal ligation History of 3 sections Hx of left knee surgery Social History Household Members: Spouse and Children Housing: House Do you presently have visiting nurse or other home services: No Alcohol intake: never Patient Tobacco Use Status: Never used Tobacco e-Cigarette/Vaping Use: Never Used Second Hand Smoke Exposure: No service: No Current occupational status: unemployed Cognitive needs: No Hearing needs: No Vision needs: No Female Reproductive History Menstrual control method: permanent sterilization Permanent Sterilization: BTL Total pregnancies: 4 Full term: 3 Ab spontaneous: 1 History of abnormal pap smear: No Questionnaire PHQ-9 Over the last 2 weeks, how often have you been bothered by any of the following problems? 1. Little interest or pleasure in doing things: not at all 2. Feeling down, depressed, or hopeless: not at all 3. Trouble falling or staying asleep, or sleeping too much: not at all 4. Feeling tired or having little energy: nearly every day 5. Poor appetite or overeating: several days 6. Feeling bad about yourself - or that you are a failure or have let yourself or your family down: not at all 7. Trouble concentrating on things, such as reading the newspaper or watching television: not at all 8. Moving or speaking so slowly that other people could have noticed. Or the opposite - being so fidgety or restless that you have been moving around a lot more than usual: not at all 9. Thoughts that you would be better off or of hurting yourself in some way: not at all Total score: 4 Depression Screening Interpretation: Positive Depression Screening Follow-up: Declines treatment Depression Screening Done: Yes 56010 - PHQ-9 Billing: Yes Source: Developed by Drs. Niraj Woods, Briana Chaudhary, Dann Castrejon and colleagues, with an educational kristin from [facility]. Thrive Questionnaire Date Thrive assessed: 05/22/24 I am a: Patient What is your living situation today?: I have a steady place to live Within the past 12 months, did the food you bought not last and you didn't have the money to get more?: Sometimes True Within the past 12 months, did you worry whether your food would run out before you got money to buy more?: Sometimes True Do you have trouble paying for medicines?: No Do you have trouble getting transportation to medical appointments?: No Do you have trouble paying your heating and electricity bill?: No Do you have trouble taking care of your child, family member or friend?: No Do you have trouble with day-to-day activities such as bathing, preparing meals, shopping, managing finances, etc.?: No Are you currently unemployed and looking for a job?: No Are you interested in more education?: Yes Please select the resources that you would like help with: None Currently or been in a relationship where the following occur: No concerns reported THRIVE Score: 2 AUDIT C Alcohol Use Questionnaire (AUDIT-C) 1. How often do you have a drink containing alcohol?: Never 3. How often do you have six or more drinks on one occasion?: Never Total Score: 0 FLETCHER-7 AMB Questionnaire FLETCHER-7 Date FLETCHER - 7 assessed: 05/27/24 Feeling nervous, anxious, or on edge: 0 = Not at all Not being able to stop or control worryin = Not at all Worrying too much about different things: 0 = Not at all Trouble relaxin = Not at all Being so restless that it is hard to sit still: 0 = Not at all Becoming easily annoyed or irritable: 0 = Not at all Feeling afraid as if something awful might happen: 0 = Not at all Total FLETCHER-7 score (0-4 normal; 5-9 mild; 10-14 moderate; 15-21 severe): 0 Source: Developed by Drs. Niraj Woods, Briana Chaudhary, Dann Castrejon and colleagues, with an educational kristin from [facility]. FLETCHER-7 Assessment Billing FLETCHER-7 Assessment Tool: FLETCHER-7 Assessment 51908 Review of Systems Const Denies body aches, Reports fatigue, Denies fever(s), Denies frequent falls, Denies headache(s) and Denies weakness Eyes Reports no additional complaints and Denies change in vision ENT Denies headache(s) and Denies nasal congestion Card Denies chest pain, Denies lightheadedness and Denies dyspnea Resp Denies cough and Denies dyspnea GI Denies abdominal pain, Reports constipation, Denies dyspepsia, Denies diarrhea, Denies nausea and Denies vomiting Reports no additional complaints Musc Details: left knee pain Denies back pain and Denies myalgias Skin/Breast Reports system reviewed and no additional complaints, except as documented Neuro Denies frequent falls, Denies headache(s) and Denies weakness Psych Reports no additional complaints Endo Reports fatigue Physical exam (Primary Care) Vital Signs: Last Vital Signs Pulse 75 05/27/24 08:07 BP 110/64 05/27/24 08:07 Pulse Ox 99 05/27/24 08:07 Oxygen Delivery Method Room Air 05/27/24 08:07 BMI result Body Mass Index 28.3 Tobacco/Smoking Status: Tobacco use Status Tobacco use date assessed 05/27/24 05/27/24 08:14 Patient Tobacco Use Status Never used Tobacco 05/27/24 08:05 e-Cigarette/Vaping Use Never Used 05/27/24 08:14 PHQ-9: PHQ-9 Score PHQ-9: Total score 4 05/27/24 08:14 Depression Screening Interpretation: Positive Depression Screening Follow-up: Declines treatment Thrive Assessment: Date of Thrive Assessment Date Thrive assessed 05/22/24 05/27/24 08:05 Currently or been in a relationship where the following occur: No concerns reported Const General: cooperative, healthy appearing, comfortable and no acute distress Orientation/consciousness: patient oriented x3 HENMT Head: Yes normocephalic Ears: hearing grossly normal bilaterally General nose exam: Normal external nose present Eyes General: appearance normal, both eyes and all related structures Conjunctivae: conjunctivae normal Neck Neck: Yes full ROM and Yes no lymphadenopathy Resp Effort & Inspection: normal respiratory effort Auscultation: clear to auscultation bilaterally, no crackles, no rales, no rhonchi and no wheezes Cardio Rate: regular rate Rhythm: regular rhythm Skin General skin exam: no rashes or lesions noted Neuro General: patient oriented x3 Gait exam (Neuro): Normal gait present Extrem General: Yes normal to inspection, Yes full ROM and No edema Psych Affect: normal affect Attitude: cooperative Insight: Good insight present (Psych) Judgement: Good judgement present (Psych) Coding Level of Care Code New Pt Level 4 (80007) Diagnoses Internal derangement of left knee M23.92 Asthma J45.909 Iron deficiency anemia D50.9 Constipation K59.00 Screening for cervical cancer Z12.4 Additional Codes FLETCHER-7 Assessment Billing - FLETCHER-7 Assessment Tool: FLETCHER-7 Assessment 19304 ([id number]) PHQ-9 - 69417 - PHQ-9 Billing: Yes ([id number]) Assessment & Plan Assessment & Plan (1) Internal derangement of left knee: Code(s): M23.92 - Unspecified internal derangement of left knee Category: Medical Plan: Patient having medial knee pain on exam consistent with medial meniscus tear as evidenced by MRI. Has been using Tylenol and ibuprofen and has follow up with Orthopedics later this month. Given diclofenac gel for pain management and advised to follow up with Orthopedics. (2) Asthma: Code(s): J45.909 - Unspecified asthma, uncomplicated Category: Medical Plan: Asthma currently controlled on present medications. Continue on albuterol as needed. Avoid triggers such as allergies. (3) Iron deficiency anemia: Code(s): D50.9 - Iron deficiency anemia, unspecified Category: Medical Plan: Patient having iron deficiency anemia was started on oral iron by emergency department states her symptoms have improved. Ordered for iron panel and CBC to ensure efficacy. (4) Constipation: Code(s): K59.00 - Constipation, unspecified Category: Medical Plan: Patient complaining of constipation as a result of iron supplement. We will give senna and advised plenty of fluid intake and high fiber diet. (5) Screening for cervical cancer: Code(s): Z12.4 - Encounter for screening for malignant neoplasm of cervix Category: Medical Plan: Referral placed to OBGYN. Pap smears have been up-to-date. Plan This note was constructed using voice recognition software. While every effort has been made to ensure accuracy and heavy equipment technician, still areas may have been included sometimes these areas may affect the content or meeting of the given symptoms. Total time spent caring for the patient today was 30 minutes. This includes time spent before the visit reviewing the chart, time spent during the visit, and time spent after the visit and documentation. Orders: Orders Complete Blood Count Auto Diff Today D50.9 - Iron deficiency anemia, unspecified IRON PROFILE Today D50.9 - Iron deficiency anemia, unspecified Lipid Panel Today E78.00 - Pure hypercholesterolemia, unspecified Vitamin B12 and Folate Today Z00.00 - Encounter for general adult medical examination without abnormal findings Vitamin D 25-OH Total Today Z00.00 - Encounter for general adult medical examination without abnormal findings TSH reflex Free T4 Today Z00.00 - Encounter for general adult medical examination without abnormal findings Free T4 (Free Thyroxine) Today Z00.00 - Encounter for general adult medical examination without abnormal findings Referrals BASEBALL INSPECTOR Referral Z12.4 - Encounter for screening for malignant neoplasm of cervix Medications: New sennosides (senna) 8.6 mg PO BEDTIME PRN 30 caps 1RF constipation albuterol sulfate 90 mcg/actuation (Ventolin HFA) 2 puffs inhalation Q4H PRN 6.7 grams 2RF wheezing diclofenac sodium 1% (Arthritis Pain (diclofenac)) apply to single knee 2 grams topical QID 100 grams 0RF Refilled ferrous sulfate 324 mg PO DAILY 30 tabs 3RF
[2024-05-27 08:07] VITALS: BP 110/64; PULSE 75; O2SAT 99; BMI 28.3
== END 2024-05-27 08:54 | disposition home or self-care (01) ==
DX: M23.92 Unspecified internal derangement of left knee (principal); J45.909 Unspecified asthma, uncomplicated; D50.9 Iron deficiency anemia, unspecified; K59.00 Constipation, unspecified; Z12.4 Encounter for screening for malignant neoplasm of cervix

== ENCOUNTER → 2024-05-27 07:51 | Outpatient (BNVA) | payer OTHER, SELFPAY | DX: D50.9 Iron deficiency anemia, unspecified (principal); M23.92 Unspecified internal derangement of left knee; J45.909 Unspecified asthma, uncomplicated; K59.00 Constipation, unspecified; Z12.4 Encounter for screening for malignant neoplasm of cervix | CPT/HCPCS: 96127; 99202 ==

== ENCOUNTER 2024-05-31 18:30 | Emergency (ER) | payer OTHER, SELFPAY ==
--- NOTE | ~2024-05-31 | XR_ITS ---
CLINICAL HISTORY: knee pain 4 view left knee Comparison: MR/MT - MR KNEE LT WO CON - 05/22/24 18:38 EST DX/MT/SR - XR KNEE LT 1V - 12/22/23 13:17 EDT DX/SR - XR KNEE RT 2V - 12/22/23 13:17 EDT CR/MT/SR - XR KNEE LT 4V - 11/01/23 12:31 EDT Findings: No fractures or dislocations. Mild medial compartment narrowing. No joint effusion. No radiopaque foreign body. IMPRESSION: 1. No acute findings. This document has been electronically signed by: Izzy Rojas MD on 05/31/2024 19:13:46
[2024-05-31 18:49] VITALS: BP 110/55; PULSE 72; RESP 20; TEMP 36.2; O2SAT 100; BMI 25.8
--- NOTE | 2024-05-31 18:53 | ED.GENADULT ---
HPI - General Adult General Chief complaint: Extremity Problem Stated complaint: Lt Knee Pain & Swelling History of Present Illness HPI narrative: Patient left before completion of treatment by ED provider. Related Data Previous Rx's ?Medication ?Instructions ?Recorded albuterol sulfate 90 mcg/actuation 2 puff inhalation Q4H PRN wheezing 05/27/24 aerosol inhaler (Ventolin HFA) #6.7 grams diclofenac sodium 1 % topical gel 2 g topical QID #100 grams 05/27/24 (Arthritis Pain (diclofenac)) ferrous sulfate 324 mg (65 mg 324 mg PO DAILY #30 tabs 05/27/24 iron) tablet,delayed release sennosides 8.6 mg capsule (senna) 8.6 mg PO BEDTIME PRN constipation 05/27/24 #30 caps Allergies Allergy/AdvReac Type Severity Reaction Status Date / Time No Known Allergies Allergy Verified 05/31/24 18:51 [No Known Allergies*] PMFSH Past Medical History Medical History History of cyst of breast Surgical History History of appendectomy History of cystostomy History of tubal ligation History of 3 sections Hx of left knee surgery Social History Social History Household Members: Spouse and Children Housing: House Do you presently have visiting nurse or other home services: No Alcohol intake: never Patient Tobacco Use Status: Never used Tobacco e-Cigarette/Vaping Use: Never Used Second Hand Smoke Exposure: No Advance Directives: No Advance Directives Information Provided: No service: No Current occupational status: unemployed Cognitive needs: No Hearing needs: No Vision needs: No Physical Exam ED Vital Signs: Vital Signs - 24 hr 05/31/24 18:49 Temperature 97.2 F Pulse Rate 72 Respiratory Rate 20 Blood Pressure 110/55 L Pulse Oximetry 100 Oxygen Delivery Method Room Air BMI result Body Mass Index 25.8 Course Course Course Narrative: RmE: 34-year-old female presents to the ED for knee swelling. Patient has history of meniscus tear fused ago and had surgery. Patient states yesterday she was walking at work and turn her need awkwardly and heard a pop in her knee since then it has been swollen. On exam negative for redness or warmth of knee. Knee is not stiff. Was sent for x-ray. Discharge Plan Discharge Clinical Impression: Knee pain Patient Disposition: Left W/O Completing Treatment Prescriptions: No Action albuterol sulfate [Ventolin HFA] 90 mcg/actuation HFA aerosol inhaler 2 puff INHALATION Q4H PRN (Reason: wheezing) Qty: 6.7 2RF diclofenac sodium [Arthritis Pain (diclofenac)] 1 % gel 2 g topical QID Qty: 100 0RF Rx Instructions: apply to single knee ferrous sulfate 324 mg (65 mg iron) tablet,delayed release (DR/EC) 324 mg PO DAILY Qty: 30 3RF senna 8.6 mg capsule 8.6 mg PO BEDTIME PRN (Reason: constipation) Qty: 30 1RF Discharge Date/Time: 05/31/24 23:48
== END 2024-05-31 23:48 | disposition left against medical advice (07) ==
LOC: HO.ED 23:43
PROVIDERS: Emergency Provider Emergency Medicine
DX: M25.562 Pain in left knee (principal)
CPT/HCPCS: 73564; 99281; 99283

== ENCOUNTER → 2024-05-31 18:53 | Outpatient (BNV) | payer OTHER, SELFPAY | PROVIDERS: Visit Provider Radiology Diagnostic Radiology | DX: M25.562 Pain in left knee (principal) | CPT/HCPCS: 73564 ==

== ENCOUNTER 2024-06-17 11:34 | Outpatient (AMB) | payer OTHER, SELFPAY ==
--- NOTE | 2024-06-17 11:43 | A.OFFVIS_ITS ---
Intake Visit Reasons: OV - Left knee MRI review Intake Note: Palma is a 34 year old female who presents today referred by Aleta Encinas to discuss possible left knee surgery. Being treated for her lower back with [facility] Lario[facility]. History of a Left Knee in [place] in 2022, cortisone injection with no relief IMPRESSION: 1. Horizontal medial meniscus tear (posterior). 2. Mild cartilage loss, including small focus adjacent to the medial meniscus tear. Allergies No Known Allergies [No Known Allergies*] Allergy (Verified 05/31/24 18:51) HPI HPI OV - Left knee MRI review : Details: Palma is a 34 year old female who presents today referred by Aleta Encinas to discuss possible left knee surgery. Being treated for her lower back with [facility] Lario[facility]. History of a Left Knee in [place] in 2022, cortisone injection with no relief. She has a long history with respect to her left knee. She describes this scenario in which she was seen in [place] 2 years ago and complained of left knee pain and swelling. She underwent therapy and injections but her swelling got worse and she was sent to a 2nd orthopedic surgeon who performed a knee arthroscopy but said, according to her, that her meniscus was okay and that he ?cleaned up the knee. Since then she has had persistent symptoms she has had to go the ED several times. She can not sleep at night and she describes and locking of her left knee. This happens when she is seated and she goes to stand or straighten her knee and feels like it locks up and she needs to slowly extended and hears a pop and can straighten her knee. [facility] Medical History History of cyst of breast Surgical History History of appendectomy History of cystostomy History of tubal ligation History of 3 sections Hx of left knee surgery Social History Household Members: Spouse and Children Housing: House Do you presently have visiting nurse or other home services: No Alcohol intake: never Patient Tobacco Use Status: Never used Tobacco e-Cigarette/Vaping Use: Never Used Second Hand Smoke Exposure: No service: No Current occupational status: unemployed Cognitive needs: No Hearing needs: No Vision needs: No Physical Exam Extrem Other: Left knee is globally tender. Negative Paulina's but tenderness to palpation prominently along the medial retropatellar facet and medial joint line. Trace effusion. Results Reviewed Results Reviewed: I personally reviewed relevant radiographs. Normal knee radiographs I personally reviewed the MR images. 1. Horizontal medial meniscus tear (posterior). 2. Mild cartilage loss, including small focus adjacent to the medial meniscus tear. Assessment & Plan Assessment & Plan (1) Internal derangement of left knee: Code(s): M23.92 - Unspecified internal derangement of left knee Category: Medical Plan: This is a 34-year-old woman with 2 years of left knee pain after knee arthroscopy. I reviewed her MRI and this is unimpressive, certainly with respect to the meniscus. I do not see an identifiable tear that would be am enable to surgery. It is remotely possible that she has an unstable bucket- handle tear of the meniscus given her pseudo locking symptoms but I am unconvinced that that is true locking. Nevertheless her pain is out of proportion and I do not think surgery is indicated at this moment. I recommend NSAIDs (I will send a prescription for Aleve to her pharmacy) and a referral to pain management. I have think if we could diminish her knee pain through nerve stimulation this might offer some insight into the underlying etiology of her pain. I discussed this with her. She is amenable with the plan. I will see her back in 2 months' time. Coding Level of Care Code Est Pt Level 4 (08843) Diagnoses Internal derangement of left knee M23.92
--- OUTSIDE RECORDS SUMMARY | 2024-06-17 12:15 | XMS_ITS | Clinical Summary ---
Author Organization [facility] Address [address] [place] [address] [address] [place] [address] Care Team Providers Care Manager Landscape Name Role Phone Unavailable Primary Care Provider Unavailabl e Allergies No known active allergies Medications albuterol 108 (90 Base) MCG/ACT inhalerIndication s:Mild intermittent asthma without complication Inhale 2 puffs every 4 (four) hours if needed for wheezing. 18 g 11/17/2023 11/17/19 25 Active Active Problems Problem Noted Date Diagnosed Date Mild intermittent asthma without complication Other specified anemias 11/17/2023 Resolved Problems Problem Noted Date Diagnosed Date Resolved Date Mild persistent asthma without complication 11/17/2023 11/17/2023 Family History Medical History Relation Name Comments Asthma Mother Asthma Sister Relation Name Status Comments Mother Sister Social History Tobacco Use Types Packs/Day Years Used Date Smoking Tobacco: Never Passive Smoke Exposure: Never Smokeless Tobacco: Never Tobacco Cessation:Counseling Given: Not Answered Comments Unknown Sex and Gender Information Value Date Recorded Sex Assigned at Female 03/17/2022 10:22 AM EDT Legal Sex Female 10:22 AM EDT Gender Identity Female 11/17/2023 12:36 PM EDT Sexual Orientation Straight 11/17/2023 12 :36 PM EDT Last Filed Vital Signs Vital Sign Reading Time Taken Comments Blood Pressure 117/79 11/17/2023 1:01 PM EDT Pulse 70 11/17/2023 1:01 PM EDT Temperature 36.8 ??C (98.3 ??F) 11/17/2023 1:01 PM ED T Respiratory Rate 16 11/17/2023 1:01 PM EDT Oxygen Saturation - - Inhaled Oxygen Concentration - - Weight - - Height - - Body Mass Index - - Plan of Treatment Health Maintenance Due Date Last Done Comments Depression Screening 1988 HIV Screening 1988 SDOH Screening 1988 Alcohol/Substance Use Screening 2000 Family Planning (PISQ) 2003 Hepatitis C Screening 2006 DTaP/Tdap/Td Vaccines (1 - Tdap) 2007 Hepatitis B Vaccines (1 of 3 - 19+ 3-dose series) 2007 Pap Smear 2009 Pneumococcal Vaccine: Pediatrics (0 to 5 Years) and At-Risk Patients (6 to 49) Years) (2 of 2 - PCV) 03/18/2013 03/18/2012 Cervical Cancer Screening 2018 HPV/Cotest 2018 COVID-19 Vaccine (1 - 2023-2 5 season) 2024 Influenza Vaccine (#1) 2024 5, 03/03/2012 Tobacco Screening 11/16/2024 11/17/2023 Zoster Vaccines (1 of 2) 2038 RSV Patients and Patients Aged 60 years or older (1 - 1-dose 75+ series) 2063 HIB Vaccines Aged Out No longer eligi ble based on patient's age to complete this topic HPV Vaccines Aged Out No longer eligi ble based on patient's age to complete this topic Hepatitis A Vaccines Aged Out No long er eligible based on patient's age to complete this topic IPV Vaccines Aged Out No longer eligi ble based on patient's age to complete this topic Meningococcal Vaccine Aged Out No devon kenna eligible based on patient's age to complete this topic RSV under 20 months Aged Out No longe r eligible based on patient's age to complete this topic Rotavirus Vaccines Aged Out No longer eligible based on patient's age to complete this topic Insurance [employer] [place], [place]
--- OUTSIDE RECORDS SUMMARY | 2024-06-17 12:15 | XMS_ITS | Clinical Summary ---
Author Organization [facility] Address [address] [place] [address] Phone Care Team Providers Care Sapphire Stylus Grinder Name Role Phone Physician, No Pcp Primary Care Provider Unavaila ble Allergies No known active allergies Encounters Date Type Department Care Team Description 04/04/2024 9:34 PM EST - 04/05/2024 2:34 AM EST Emergency [facility] Emergency [address] [place] [address] Discharge Disposition: Home or Self Care from Last 3 Months Medical History Medical History Date Comments Asthma Anemia Social History Tobacco Use Types Packs/Day Years Used Date Smoking Tobacco: Never Smokeless Tobacco: Never Tobacco Cessation:Counseling Given: Not Answered Sex and Gender Information Value Date Recorded Sex Assigned at Not on file Gender Identity Not on file Sexual Orientation Not on file Job Start Date Occupation Industry Not on file Not on file Not on file Obstetrics History Last Filed Vital Signs Vital Sign Reading Time Taken Comments Blood Pressure 120/90 04/04/2024 9:41 PM EST Pulse 67 04/04/2024 9:41 PM EST Temperature 36.6 ??C (97.9 ??F) 04/04/2024 9:41 PM ES T Respiratory Rate 18 04/04/2024 9:41 PM EST Oxygen Saturation - - Inhaled Oxygen Concentration - - Weight 72.6 kg (160 lb) 04/04/2024 9:41 PM EST Height 167.6 cm (5' 6 ) 04/04/2024 9:41 PM EST Body Mass Index 25.82 04/04/2024 9:41 PM EST Plan of Treatment Health Maintenance Due Date Last Done Comments Pneumococcal Vaccine: Pediat rics (0 to 5 Years) and At-Risk Patients (6 to 64 Years) (1 of 2 - PCV) 1994 DTaP,Tdap,and Td Vaccines (1 - Tdap) 2007 Hepatitis B Vaccines (1 of 3 - 19+ 3-dose series) 2007 Cervical Cancer Screening: P ap Smear 2009 COVID-19 Vaccine (2023-2 5 season) 2024 Influenza Vaccine (#1) 2024 Depression Screening 04/05/2024 HIV Screening 04/05/2024 Hepatitis C Screening 04/05/2024 Social Influencers of Health Screening 04/05/2024 HIB Vaccines Aged Out No longer eligi [...] on patient's age to complete this topic MMR Vaccines Aged Out No longer eligi ble based on patient's age to complete this topic Meningococcal ACWY Vaccine Aged Out N o longer eligible based on patient's age to complete this topic RSV Immunization Patients Un vincent 20 months Aged Out No longer eligible b ased on patient's age to complete this topic Varicella Vaccines Aged Out No longer eligible based on patient's age to complete this topic Procedures Procedure Name Priority Date/Time Associated Diagnosis Comments CBC WITH AUTO DIFFERENTIAL STAT 04/04/2024 9:55 PM EST COMPREHENSIVE METABOLIC PANEL STAT 04/04/2024 9:55 PM EST CBC AND DIFFERENTIAL STAT 04/04/2024 9:55 PM EST from Last 3 Months Results * (ABNORMAL) CBC auto differential (04/04/2024 9:55 PM EST) WBC 8.8 4.8 - 10.8 K/[facility] LAB HEMETOLOGY METHOD 04/04/2024 10:07 PM EST [facility] LAB RBC 4.20 3.80 - 4.80 M/[facility] LAB HEMETOLOGY METHOD 04/04/2024 10:07 PM [facility] LAB Hemoglobin 10.0(L) 11.5 - 16.0 g/dL LAB HEMETOLOGY METHOD 04/04/2024 10:07 PM [facility] LAB Hematocrit 33.0(L) 35.0 - 47.0 % LAB HEMETOLOGY METHOD 04/04/2024 10:07 PM [facility] LAB MCV 79.5 79.0 - 98.0 FL LAB HEMETOLOGY METHOD 04/04/2024 10:07 PM [facility] LAB MCH 24.1(L) 27.0 - 32.0 pcg LAB HEMETOLOGY METHOD 04/04/2024 10:07 PM [facility] LAB MCHC 30.3(L) 32.0 - 37.0 g/dL LAB HEMETOLOGY METHOD 04/04/2024 10:07 PM [facility] LAB RDW 15.8(H) 11.0 - 15.0 % LAB HEMETOLOGY METHOD 04/04/2024 10:07 PM [facility] LAB Platelets 383 130 - 400 K/mcL LAB HEMETOLOGY METHOD 04/04/2024 10:07 PM [facility] LAB MPV 9.0 7.0 - 11.0 FL LAB HEMETOLOGY METHOD 04/04/2024 10:07 PM [facility] LAB NRBC 0.0 <1.0 % LAB HEMETOLOGY METHOD 04/04/2024 10:07 PM [facility] LAB NRBC Absolute 0.00 <0.10 K/mcL LAB HEMETOLOGY METHOD 04/04/2024 10:07 PM [facility] LAB Neutrophils Relative 52.0 % LAB HEMETOLOGY METHOD 04/04/2024 10:07 PM [facility] LAB Lymphocytes Relative 41.0 % LAB HEMETOLOGY METHOD 04/04/2024 10:07 PM [facility] Monocytes Relative 4.6 % LAB HEMETOLOGY METHOD 04/04/2024 10:07 PM [facility] LAB Eosinophils Relative 1.4 % LAB HEMETOLOGY METHOD 04/04/2024 10:07 PM EST [facility] Basophils Relative 0.8 % LAB HEMETOLOGY METHOD 04/04/2024 10:07 PM EST [facility] Immature Granulocytes Relative 0.2 % LAB HEMETOLOGY METHOD 04/04/2024 10:07 PM [facility] LAB Neutrophils Absolute 4.56 1.50 - 7.00 K/mcL LAB HEMETOLOGY METHOD 04/04/2024 10:07 PM EST [facility] LAB Lymphocytes Absolute 3.59 1.00 - 5.00 K/mcL LAB HEMETOLOGY METHOD 04/04/2024 10:07 PM EST [facility] LAB Monocytes Absolute 0.40 0.20 - 1.00 K/mcL LAB HEMETOLOGY METHOD 04/04/2024 10:07 PM [facility] LAB Eosinophils Absolute 0.12 0.00 - 0.50 K/mcL LAB HEMETOLOGY METHOD 04/04/2024 10:07 PM EST [facility] Basophils Absolute 0.07 0.00 - 0.20 K/mcL LAB HEMETOLOGY METHOD 04/04/2024 10:07 PM EST [facility] Immature Granulocytes Absolute 0.02 0.00 - 0.03 K/mcL LAB HEMETOLOGY METHOD 04/04/2024 10:07 PM [facility] Blood Venous blood specimen / Unknown Venipuncture / Unknown 04/04/2024 9:55 PM EST 04/04/2024 10:02 PM EST Blake Fuentes MD LAB BLOOD ORDERAB LES [facility] [address] [place] [address], * (ABNORMAL) Comprehensive metabolic panel (04/04/2024 9:55 PM EST) Sodium 138 133 - 145 mmol/L LAB CHEMISTRY METHOD 04/04/2024 10:33 PM [facility] Potassium 4.0 3.5 - 5.5 mmol/L LAB CHEMISTRY METHOD 04/04/2024 10:33 PM [facility] Chloride 107 96 - 110 mmol/L LAB CHEMISTRY METHOD 04/04/2024 10:33 PM [facility] CO2 27 21 - 32 mmol/L LAB CHEMISTRY METHOD 04/04/2024 10:33 PM [facility] Anion Gap 4 3 - 11 LAB CHEMISTRY METHOD 04/04/2024 10:33 PM [facility] LAB Glucose 135(H) 70 - 100 mg/dL LAB CHEMISTRY METHOD 04/04/2024 10:33 PM [facility] BUN 11 5 - 25 mg/dL LAB CHEMISTRY METHOD 04/04/2024 10:33 PM [facility] LAB Creatinine 0.89 0.50 - 1.10 mg/dL LAB CHEMISTRY METHOD 04/04/2024 10:33 PM [facility] LAB eGFR 86 >=60 mL/min/1. 73m2 LAB CHEMISTRY METHOD 04/04/2024 10:33 PM [facility] LAB Comment:Calculation based on the??Chronic Kidney Disease Epidemiology Collaboration (CKD-EPI) equation refit??without adjustment for race. BUN/Creatinine Ratio 12.4 LAB CHEMISTRY METHOD 04/04/2024 10:33 PM [facility] Calcium 9.4 8.5 - 10.5 mg/dL LAB CHEMISTRY METHOD 04/04/2024 10:33 PM [facility] LAB AST (SGOT) 14 10 - 42 unit/L LAB CHEMISTRY METHOD 04/04/2024 10:33 PM [facility] LAB ALT (SGPT) 18 10 - 60 unit/L LAB CHEMISTRY METHOD 04/04/2024 10:33 PM [facility] LAB Alkaline Phosphatase 85 42 - 121 unit/L LAB CHEMISTRY METHOD 04/04/2024 10:33 PM EST [facility] Total Protein 7.5 6.0 - 8.0 g/dL LAB CHEMISTRY METHOD 04/04/2024 10:33 PM EST [facility] Albumin 3.7 3.2 - 5.0 g/dL LAB CHEMISTRY METHOD 04/04/2024 10:33 PM EST [facility] Total Bilirubin 0.3 0.0 - 1.4 mg/dL LAB CHEMISTRY METHOD 04/04/2024 10:33 PM EST [facility] Blood Venous blood specimen / Unknown Venipuncture / Unknown 04/04/2024 9:55 PM EST 04/04/2024 10:02 PM EST Blake Fuentes MD LAB BLOOD ORDERAB LES [facility] [address] [place] [address], from Last 3 Months Care Teams Sapphire Stylus Grinder Relationship Specialty Start Date End Date Physician, No Pcp PCP - General 04/05/24
== END 2024-06-17 12:42 | disposition home or self-care (01) ==
PROVIDERS: Visit Provider Orthopaedic Surgery
DX: M23.92 Unspecified internal derangement of left knee (principal)
CPT/HCPCS: 99214

== ENCOUNTER → 2024-06-17 11:34 | Outpatient (BNVA) | payer OTHER, SELFPAY | PROVIDERS: Visit Provider Orthopaedic Surgery | DX: M23.92 Unspecified internal derangement of left knee (principal) | CPT/HCPCS: 99212 ==

== ENCOUNTER 2024-07-01 11:39 | Outpatient (AMB) | payer OTHER, SELFPAY ==
[2024-07-01 11:43] VITALS: BP 99/59; PULSE 65; RESP 16; O2SAT 100; BMI 26.8
--- NOTE | 2024-07-01 11:43 | MHC.OFFVIS ---
Vital Signs 07/01/24 11:43 Height 5 ft 6 in Weight 166 lb BMI 26.8 BP 99/59 L Blood Pressure Location Lt brachial Position Sitting Respiration 16 Pulse 65 Pulse Source Pulse Oximeter Pulse Oximetry (%) 100 Oxygen Delivery Method Room Air Intake Visit Reasons: Unspecified internal derangement of left knee Fire Extinguisher Mechanic Required: Yes Fire Extinguisher Mechanic Services: Fire Extinguisher Mechanic Present Fire Extinguisher Mechanic Name: [id number] Ban Allergies No Known Allergies [No Known Allergies*] Allergy (Verified 07/01/24 11:46) Medication List - Last Reconciled 07/01/24 by Ene Sutton LPN albuterol sulfate 90 mcg/actuation (Ventolin HFA) 2 puffs inhalation Q4H PRN diclofenac sodium 1% (Arthritis Pain (diclofenac)) 2 grams topical QID ferrous sulfate 324 mg PO DAILY naproxen (EC-Naprosyn) 500 mg PO BID PRN sennosides (senna) 8.6 mg PO BEDTIME PRN HPI HPI Unspecified internal derangement of left knee: Details: History of Present Illness The patient is a 34-year-old female presenting with chronic left knee pain. This condition initiated approximately two years ago with the onset of pain and swelling, leading to knee arthroscopy and corticosteroid injections without subsequent relief. Despite normal MRI findings, the patient continues to endure significant pain and frequent swelling episodes that impact her daily activities and sleep quality, necessitating multiple emergency department visits. Examination reveals pronounced tenderness at the medial and suprapatellar areas of the knee. Current management with NSAIDs remains ineffective. An assessment for alternative treatments, including possible nerve stimulation, is now underway given the chronicity and severity of her symptoms. Pain Description Physical Exam Results - MRI of left knee: Findings within normal limits. Pain Management - Affect: Pain significantly impacts activities and quality of life, affecting sleep. - Analgesia: Current regimen includes NSAIDs with inadequate relief; pain score as per previous interactions unspecified. - Adverse Effects: Not documented. - Activities of Daily Living: Significant difficulty walking; impact on sleep. - Aberrant Drug Related Behaviors: None reported. [facility] Medical History History of cyst of breast Surgical History History of appendectomy History of cystostomy History of tubal ligation History of 3 sections Hx of left knee surgery Social History Household Members: Spouse and Children Housing: House Do you presently have visiting nurse or other home services: No Alcohol intake: never Patient Tobacco Use Status: Never used Tobacco e-Cigarette/Vaping Use: Never Used Second Hand Smoke Exposure: No service: No Current occupational status: unemployed Cognitive needs: No Hearing needs: No Vision needs: No Physical Exam Vital Signs: Last Vital Signs Pulse 65 07/01/24 11:43 Resp 16 07/01/24 11:43 BP 99/59 L 07/01/24 11:43 Pulse Ox 100 07/01/24 11:43 Oxygen Delivery Method Room Air 07/01/24 11:43 BMI result Body Mass Index 26.8 Assessment & Plan Assessment & Plan (1) Pain and swelling of left knee: Code(s): M25.562 - Pain in left knee; M25.462 - Effusion, left knee Category: Medical Plan Plan For the patient's chronic left knee pain and swelling episodes, will refer to rheumatology for possible inflammatory condition evaluation. We will also proceed with temporary saphenous nerve stimulation based on her lack of response to prior treatments, including surgery, PT and corticosteroid injections. Insurance authorization is necessary and will be pursued for the nerve stimulation procedure. Patient was informed and verbally consented to the use of an ambient scribe for clinic note documentation during this visit. Discussion Notes During the consultation, I discussed with the patient the persistent nature of her left knee symptoms and the normal MRI findings despite significant pain and swelling. The potential for a rheumatologic cause was raised, warranting a referral to evaluate for inflammatory sources. I explained the saphenous nerve stimulation procedure, outlining that it involves placing a thin wire under the skin to block knee pain signals, lasting for two months. The procedure's benefits, potential outcomes, and the need for insurance authorization were addressed. The patient consented to proceed with the necessary steps for the nerve stimulation. Patient Instructions - Follow up with rheumatology as referred. - Await contact for insurance authorization regarding nerve stimulation procedure. - Continue with current pain management measures as directed. - Report any significant increases in swelling or pain to my office. - Attend scheduled follow-up visits for ongoing assessment. Orders: Referrals Rheumatology Referral M25.462 - Effusion, left knee, M25.562 - Pain in left knee Coding Level of Care Code New Pt Level 4 (53061) Diagnoses Pain and swelling of left knee M25.562; M25.462
--- OUTSIDE RECORDS SUMMARY | 2024-07-01 12:23 | XMS_ITS | Clinical Summary ---
Author Organization [employer] Address [address] [place] [address] [address] [place] [address] Care Team Providers Care Certified Low Vision Therapist Name Role Phone Unavailable Primary Care Provider [...] patient's age to complete this topic Insurance [employer] [place], [place]
--- OUTSIDE RECORDS SUMMARY | 2024-07-01 12:23 | XMS_ITS | Patient Health Record ---
Author Organization [facility] Lindsey pereira Billing Info Address [address] [place] [address] Care Team Providers Care Geriatric Personal Care Aide Name Role Phone MIK CHAVEZ Unavailable [phone] MIK CHAVEZ M.D. Unavailable Reason For Referral No Information Medications Medication SIG (Take, Route, Frequency, Duration) Notes Start Date End Date Status Skelaxin 800 MG 1 tablet Orally Thre e times a day Active Cataflam 50 1 cap(s) As directed THREE TIME AT DAY Active Cheratussin AC 100-10 MG/5ML 5-10 ml Orally Q.h.s., p.r.n. cough for 7 days 05/12/2018 Active Azithromycin 250 MG as directed Orally O nce a day for 5 day(s) 05/12/2018 Active Flovent HFA 110 MCG/ACT 2 puffs Inhalati on Daily for 1 month doseage Active Social History Tobacco Use: Social History Observation Description Date Details (start date - stop date) Current Smoker NA - NA Tobacco Status: Question Answer Notes Patient is a current every day smoker Problems Problem Type SNOMED Code ICD Code Onset Dates Problem Status W/U Status Risk Notes Problem 367696746 Overweight (E66.3) Active confirmed Problem 389422006 Annual physical exam (Z00.00) Active confirmed Problem 48010518933257336 Cyst of left breast (N60.02) Active confirmed Problem History of anemia (413718276) History of anemia (Z86.2) Active confirmed Problem 379005270 Mild intermittent asthma without complication (J45.20) Active confirmed Problem 172769178 History of hypoglycemia (Z86.39) Active confirmed Plan Of Treatment No Information Medical (General) History Medical History History ICD Code Asthma Anemia Hypoglycemia Overweight Surgical History Surgery Date(Month/Year) Appendectomy 2017 x 3 Hospitalization History Reason Date(Month/Year) x 3 Appendectomy
--- OUTSIDE RECORDS SUMMARY | 2024-07-01 12:24 | XMS_ITS | Clinical Summary ---
Author Organization [facility] Address [address] [place] [address] Phone Care Team Providers Care Associate Chemist Name Role Phone Physician, No Pcp Primary Care Provider Unavaila ble Allergies No known active allergies Encounters Date Type Department Care Team Description 04/04/2024 9:34 PM EST - 04/05/2024 2:34 AM EST Emergency [facility] Emergency [address] [place] [address] Discharge Disposition: Home or Self Care from Last 3 Months Medical History Medical History Date Comments Asthma Anemia Social History Tobacco Use Types Packs/Day Years Used Date Smoking Tobacco: Never Smokeless Tobacco: Never Tobacco Cessation:Counseling Given: Not Answered Comments Unknown Sex and Gender Information Value Date Recorded Sex Assigned at Not on file Legal Sex Female 12:40 PM EST Gender Identity Not on file Sexual Orientation Not on file Obstetrics History Last Filed [...] Health Maintenance Due Date Last Done Comments DTaP,Tdap,and Td Vaccines (1 - Tdap) 2007 Hepatitis B Vaccines (1 of 3 - 19+ 3-dose series) 2007 Pneumococcal Vaccine: Pediat rics (0 to 5 Years) and At-Risk Patients (6 to 64 Years) (1 of 2 - PCV) 2007 Cervical Cancer Screening: P ap Smear 2009 COVID-19 Vaccine (1 - 2023-2 5 season) [...] patient's age to complete this topic Meningococcal B Vacine Aged Out No lo nger eligible based on patient's age to complete [...] PM EST) WBC 8.8 4.8 - 10.8 K/[facility] LAB HEMETOLOGY METHOD 04/04/2024 10:07 PM EST [facility] RBC 4.20 3.80 - 4.80 M/[facility] LAB HEMETOLOGY METHOD 04/04/2024 10:07 PM EST [facility] Hemoglobin 10.0(L) 11.5 - 16.0 g/dL LAB HEMETOLOGY METHOD 04/04/2024 10:07 PM [facility] Hematocrit 33.0(L) 35.0 - 47.0 % LAB HEMETOLOGY METHOD 04/04/2024 10:07 PM [facility] LAB MCV 79.5 79.0 - 98.0 FL LAB HEMETOLOGY METHOD 04/04/2024 10:07 PM [facility] MCH 24.1(L) 27.0 - 32.0 pcg LAB HEMETOLOGY METHOD 04/04/2024 10:07 PM [facility] MCHC 30.3(L) 32.0 - 37.0 g/dL LAB HEMETOLOGY METHOD 04/04/2024 10:07 PM [facility] RDW 15.8(H) 11.0 - 15.0 % LAB HEMETOLOGY METHOD 04/04/2024 10:07 PM [facility] Platelets 383 130 - 400 K/mcL LAB HEMETOLOGY METHOD 04/04/2024 10:07 PM [facility] MPV 9.0 7.0 - 11.0 FL LAB HEMETOLOGY METHOD 04/04/2024 10:07 PM [facility] NRBC 0.0 <1.0 % LAB HEMETOLOGY METHOD 04/04/2024 10:07 PM [facility] NRBC Absolute 0.00 <0.10 K/mcL LAB HEMETOLOGY METHOD 04/04/2024 10:07 PM [facility] Neutrophils Relative 52.0 % LAB HEMETOLOGY METHOD 04/04/2024 10:07 PM [facility] Lymphocytes Relative 41.0 % LAB HEMETOLOGY METHOD 04/04/2024 10:07 PM [facility] Monocytes Relative 4.6 % LAB HEMETOLOGY METHOD 04/04/2024 10:07 PM [facility] Eosinophils Relative 1.4 % LAB HEMETOLOGY METHOD 04/04/2024 10:07 PM [facility] Basophils Relative 0.8 % LAB HEMETOLOGY METHOD 04/04/2024 10:07 PM [facility] Immature Granulocytes Relative 0.2 % LAB HEMETOLOGY METHOD 04/04/2024 10:07 PM [facility] Neutrophils Absolute 4.56 1.50 - 7.00 K/mcL LAB HEMETOLOGY METHOD 04/04/2024 10:07 PM [facility] Lymphocytes Absolute 3.59 1.00 - 5.00 K/mcL LAB HEMETOLOGY METHOD 04/04/2024 10:07 PM [facility] Monocytes Absolute 0.40 0.20 - 1.00 K/mcL LAB HEMETOLOGY METHOD 04/04/2024 10:07 PM [facility] Eosinophils Absolute 0.12 0.00 - 0.50 K/mcL LAB HEMETOLOGY METHOD 04/04/2024 10:07 PM [facility] Basophils Absolute 0.07 0.00 - 0.20 K/mcL LAB HEMETOLOGY METHOD 04/04/2024 10:07 PM [facility] Immature Granulocytes Absolute 0.02 0.00 - 0.03 K/mcL LAB HEMETOLOGY METHOD 04/04/2024 10:07 PM [facility] Blood Venous blood specimen / Unknown Venipuncture / Unknown 04/04/2024 9:55 PM EST 04/04/2024 10:02 PM EST us Blake Fuentes MD LAB BLOOD ORDERABLES Jeri cisneros Result [facility] [address] [place] [address], * (ABNORMAL) Comprehensive metabolic panel (04/04/2024 9:55 PM EST) Sodium 138 133 - 145 mmol/L LAB CHEMISTRY METHOD 04/04/2024 10:33 PM [facility] Potassium 4.0 3.5 - 5.5 mmol/L LAB CHEMISTRY METHOD 04/04/2024 10:33 PM [facility] Chloride 107 96 - 110 mmol/L LAB CHEMISTRY METHOD 04/04/2024 10:33 PM [facility] CO2 27 21 - 32 mmol/L LAB CHEMISTRY METHOD 04/04/2024 10:33 PM [facility] Anion Gap 4 3 - 11 LAB CHEMISTRY METHOD 04/04/2024 10:33 PM [facility] Glucose 135(H) 70 - 100 mg/dL LAB CHEMISTRY METHOD 04/04/2024 10:33 PM [facility] BUN 11 5 - 25 mg/dL LAB CHEMISTRY METHOD 04/04/2024 10:33 PM [facility] Creatinine 0.89 0.50 - 1.10 mg/dL LAB CHEMISTRY METHOD 04/04/2024 10:33 PM [facility] eGFR 86 >=60 mL/min/1. 73m2 LAB CHEMISTRY METHOD 04/04/2024 10:33 PM [facility] Comment:Calculation based on the??Chronic Kidney Disease Epidemiology Collaboration (CKD-EPI) equation refit??without adjustment for race. BUN/Creatinine Ratio 12.4 LAB CHEMISTRY METHOD 04/04/2024 10:33 PM [facility] Calcium 9.4 8.5 - 10.5 mg/dL LAB CHEMISTRY METHOD 04/04/2024 10:33 PM [facility] AST (SGOT) 14 10 - 42 unit/L LAB CHEMISTRY METHOD 04/04/2024 10:33 PM [facility] ALT (SGPT) 18 10 - 60 unit/L LAB CHEMISTRY METHOD 04/04/2024 10:33 PM EST [facility] Alkaline Phosphatase 85 42 - 121 unit/L LAB CHEMISTRY METHOD 04/04/2024 10:33 PM EST [facility] Total Protein 7.5 6.0 - 8.0 g/dL LAB CHEMISTRY METHOD 04/04/2024 10:33 PM EST [facility] Albumin 3.7 3.2 - 5.0 g/dL LAB CHEMISTRY METHOD 04/04/2024 10:33 PM [facility] Total Bilirubin 0.3 0.0 - 1.4 mg/dL LAB CHEMISTRY METHOD 04/04/2024 10:33 PM [facility] Blood Venous blood specimen / Unknown Venipuncture / Unknown 04/04/2024 9:55 PM EST 04/04/2024 10:02 PM EST us Blake Fuentes MD LAB BLOOD ORDERABLES Jeri l Result [facility] [address] [place] [address], [place] [phone] from Last 3 Months Insurance [facility] Care Teams Associate Chemist Relationship Specialty Start Date End Date Physician, No Pcp PCP - General 04/05/24
== END 2024-07-01 12:25 | disposition home or self-care (01) ==
PROVIDERS: Referring Provider Orthopaedic Surgery; Visit Provider Internal Medicine
DX: M25.562 Pain in left knee (principal); M25.462 Effusion, left knee
CPT/HCPCS: 99204

== ENCOUNTER → 2024-07-01 11:39 | Outpatient (BNVA) | payer OTHER, SELFPAY | PROVIDERS: Referring Provider Orthopaedic Surgery; Visit Provider Internal Medicine | DX: M25.562 Pain in left knee (principal); M25.462 Effusion, left knee | CPT/HCPCS: 99202 ==

== ENCOUNTER 2024-08-27 09:39 | Emergency (ER) | payer OTHER, SELFPAY ==
--- NOTE | ~2024-08-27 | XR_ITS ---
CLINICAL HISTORY: knee pain s p fall, hx meniscal tear 4 views left knee Comparison: CR - XR KNEE LT 4V - 05/31/24 19:03 EST Findings: No fractures, subluxations or dislocations. Joint intervals are preserved. No osteochondral lesions or loose bodies. Normal patellar alignment. No suprapatellar joint effusion.No prepatellar soft tissue swelling. Normal bone mineralization and soft tissues. No unusual radiopaque foreign body. Impression: 1. No acute fractures or malalignment. This document has been electronically signed by: Alexis Aguilar MD on 08/27/2024 11:45:05
--- NOTE | ~2024-08-27 | CT_ITS ---
CLINICAL HISTORY: fall, midline lumbar coccyx tenderness ?fracture CT lumbar spine without contrast Comparison: CR - XR LUMBAR SPINE 2-3V - 08/27/24 10:13 EDT Findings: The vertebral bodies show no evidence of an acute compression fracture. Pedicles and transverse processes intact. No spinous process fractures. Mild degenerative facet arthropathy L4-5 and L5-S1. No central spinal canal stenosis There is normal alignment. Lordotic curvature is preserved. Normal sacroiliac joints. The bones are without evidence of lytic or blastic lesions. Paravertebral soft tissues are unremarkable. 5 mm caliceal stone right kidney retroverted uterus. Impression: 1. Negative CT lumbar spine for acute process. 2. Nephrolithiasis on the right. Probable functional cyst right ovary pelvic sonogram would be confirmatory. This document has been electronically signed by: Alexis Aguilar MD on 08/27/2024 11:58:15
--- NOTE | ~2024-08-27 | XR_ITS ---
CLINICAL HISTORY: foot pain s p fall 3 views left foot Comparison: None Findings: No fractures, subluxations or dislocations. No periostitis or bony destruction. Joint intervals are preserved. No marginal erosions or overhanging osteophytes. Calcaneus and subtalar joint intact. No significant arthritic change. Small plantar calcaneal enthesophyte. Normal bone mineralization and soft tissues. Normal pre-Achilles fat pad. No radiopaque foreign body. Impression: 1. No acute fractures or malalignment This document has been electronically signed by: Alexis Aguilar MD on 08/27/2024 12:02:57
--- NOTE | ~2024-08-27 | XR_ITS ---
CLINICAL HISTORY: slip and fall 3 views lumbar spine Comparison: None Findings: No fractures or spondylolisthesis. Normal facets Disc spaces are maintained. Pedicles and transverse processes intact. Lordotic curvature is preserved. Normal bone mineralization. 4 mm probable renal calculus upper pole right kidney. Sacroiliac joints unremarkable. Impression: 1. No compression fractures or spondylolisthesis. Suspect nephrolithiasis on the right This document has been electronically signed by: Alexis Aguilar MD on 08/27/2024 10:33:41
--- NOTE | ~2024-08-27 | XR_ITS ---
CLINICAL HISTORY: posterior ankle pain s p fall 3 views left ankle Comparison: None Findings: No fractures, subluxations or dislocations. Ankle mortise intact. Normal plafond. No osteochondral lesions. Calcaneus and subtalar joint intact. No significant arthritic change. Small plantar calcaneal enthesophyte. Normal bone mineralization and soft tissues. Normal pre-Achilles fat pad. No radiopaque foreign body. Impression: 1. No fractures or malalignment. This document has been electronically signed by: Alexis Aguilar MD on 08/27/2024 11:52:49
[2024-08-27 09:53] VITALS: BP 120/72; PULSE 78; RESP 16; TEMP 36.5; O2SAT 98; BMI 27.4
--- NOTE | 2024-08-27 09:56 | ED_ITS ---
HPI - General Adult General Chief complaint: Fall Stated complaint: Fall due to snow, back pain Time Seen by Provider: 08/27/24 10:04 Source: patient, family (), EMS and plant physiologist (kyrgyz) Mode of arrival: EMS Limitations: language barrier (kyrgyz) History of Present Illness ED Provider: JENA FABIAN PA-C HPI narrative: 34 year old [place] Islander speaking female presents to the ED today for evaluation of low back pain, left knee pain, and left ankle pain s/p mechanical slip and fall on ice [employer]PECTING. She reports descending the outdoor steps of her home and slipped on the top step, causing her fall backward landing on the edge of the step with impact to lower back/buttocks. Reports sliding down approximately two steps. She reports pain to left knee and posterior left ankle where she noticed an abrasion and swelling. She denies head strike or LOC. No thinners. She was able to stand and ambulate back up the stairs and into her home. Her then drove her to our facility for further evaluation. At present, reports low back/ tail bone pain. She is unable to sit properly due to the pain. Denies taking any OTC pain medication [employer]. Denies headache, dizziness, vision changes, N/V, saddle anesthesia, bowel or bladder incontinence or retention, numbness/tingling/weakness of the lower extremities. Denies any hx spinal surgery. Denies IVDU. Reports surgery to left knee to repair a torn meniscus. house supervisor utilized throughout visit to communicate with patient. Related Data Previous Rx's ?Medication ?Instructions ?Recorded albuterol sulfate 90 mcg/actuation 2 puff inhalation Q4H PRN wheezing 05/27/24 aerosol inhaler (Ventolin HFA) #6.7 grams diclofenac sodium 1 % topical gel 2 g topical QID #100 grams 05/27/24 (Arthritis Pain (diclofenac)) ferrous sulfate 324 mg (65 mg 324 mg PO DAILY #30 tabs 05/27/24 iron) tablet,delayed release sennosides 8.6 mg capsule (senna) 8.6 mg PO BEDTIME PRN constipation 05/27/24 #30 caps naproxen 500 mg tablet,delayed 500 mg PO BID PRN pain #60 tabs 06/17/24 release (EC-Naprosyn) lidocaine 5 % topical patch 1 patch topical DAILY #15 ea 08/27/24 (Lidoderm) Allergies Allergy/AdvReac Type Severity Reaction Status Date / Time No Known Allergies Allergy Verified 08/27/24 10:01 [No Known Allergies*] Review of Systems Review of Systems: Yes all other systems are reviewed and are negative [facility] Past Medical History Attestation statement: The following information was validated with the patient. Source: old records reviewed, obtained from family and nursing notes reviewed Medical History History of cyst of breast Surgical History History of appendectomy History of cystostomy History of tubal ligation History of 3 sections Hx of left knee surgery Social History Social History Household Members: Spouse and Children Housing: House Do you presently have visiting nurse or other home services: No Alcohol intake: never Patient Tobacco Use Status: Never used Tobacco Smoked in Last 30 Days: No e-Cigarette/Vaping Use: Never Used Second Hand Smoke Exposure: No Use of substances other than those prescribed or required for medical reasons: No Advance Directives: No Advance Directives Information Provided: No Do you have a plan to hurt others: No Plan Patient : No service: No Current occupational status: unemployed Cognitive needs: No Hearing needs: No Vision needs: No Physical Exam ED Vital Signs: Vital Signs - 24 hr 08/27/24 09:53 08/27/24 13:06 Temperature 97.7 F 97.7 F Pulse Rate 78 78 Respiratory Rate 16 16 Blood Pressure 120/72 120/72 Pulse Oximetry 98 98 Oxygen Delivery Method Room Air Room Air BMI result Body Mass Index 27.4 vital signs stable. General: Well appearing, in no acute distress. Skin: Warm, dry, intact. No rashes or lesions. Head: Normocephalic, atraumatic. No palpable skull fracture or hematoma. EENT: Hearing is intact b/l. Conjunctiva clear. PERRLA. EOM intact. Moist mucous membranes.? Neck: No midline cspine tenderness or step-off deformity. Cardiac: Chest wall symmetric. RRR Lungs: Normal respiratory effort without accessory muscle use. CTA bilaterally Abdomen: Soft, non-tender, non-distended. No rebound tenderness or guarding. Positive BS x4. no cvat. Back: +no overlying skin changes/ hematoma. midline spinous tenderness over lumbar spine. Tenderness to palpation over bilateral lumbar paraspinal muscles. no palpable fluctuance or step off deformity Ext: +abrasion to posterior left ankle. no active bleeding. moves all extremities. 2+ DP/PT pulse intact. Negative Jang test. Neuro: AOx3. Normal speech. Strength 5/5 intact throughout. No saddle anesthesia. Sensation intact to light touch. NV intact distally. Psych: Appropriate mood and affect. Responds appropriately to questions. Course Course Course Narrative: This is a rapid medical exam performed by Parish De Los Santos NP: Additional HPI, ROS, PE not included below will be deferred to primary provider. 08/27/24 09:57 Patient is a 34-year-old [place] Islander speaking female presenting with back pain after slipping down 3 stairs outside this morning. States she scraped the back of left leg but worst pain is lower back. Denies head strike/LOC. Plan: lumbar x-ray, will need further physical exam by primary provider Reevaluation(s) Reevaluation #1: 1229 -- xr left foot, ankle, knee without evidence of fracture or effusion. she has an abrasion to left posterior ankle/heel. negative jang test - no concern for achiles rupture. bacitracin applied to abrasions. both xray and ct of lumbar spine without evidence of vertabral facture. there is a 5mm stone to right kidney and possible cyst to right ovary. > on re-evaluation, patient reports improvement in pain after receiving Toradol, lidocaine patch and Flexeril. She has no pelvic or abdominal pain. Her abdomen is soft and nontender. i do not feel US is warranted at this time as patient is asymptomatic. no concern for torsion. > I discussed all workup results with her including incidental findings. Advised to follow up with her PCP regarding these findings. Likely lumbar/coccygeal contusion. No evidence of expanding hematoma on exam. plan to treat pain. medication sent to pharmacy. both her and her feel fine with her discharge home. Patient has remained stable throughout ED visit today. Discussed worrisome signs and symptoms and when to return to the ED. All questions answered at this time. Patient is agreeable with disposition and stable for discharge. Medications Administered Discontinued Medications Generic Name Dose Route Start Last Admin Trade Name Brayan PRN Reason Stop Dose Admin Bacitracin 1 appl 08/27/24 12:18 08/27/24 12:56 Bacitracin Oint 0.9 Gm Packet TOPICAL 08/27/24 12:19 1 appl ONCE ONE Administration Protocol Cyclobenzaprine HCl 10 mg 08/27/24 10:41 08/27/24 11:16 Cyclobenzaprine Hcl 10 Mg Tablet PO 08/27/24 10:42 10 mg ONCE ONE Administration Ketorolac Tromethamine 30 mg 08/27/24 10:41 08/27/24 11:17 Ketorolac Tromethamine 30 Mg/Ml Vial IM 08/27/24 10:42 30 mg ONCE ONE Administration Lidocaine 1 patch 08/27/24 10:41 08/27/24 11:17 Lidocaine 4 % Patch Adh..Patch TRANSDERMA 08/27/24 10:42 1 patch ONCE ONE Administration Protocol Medical Decision Making Medical Decision Making MDM Narrative: 34 year old [place]er speaking female presents to the ED today for evaluation of low back pain, left knee pain, and left ankle pain s/p mechanical slip and fall on ice [employer]. Vital signs stable. She is nontoxic appearing in no acute distress however does appearing comfortable, lying on her left side. On exam, patient able to move all extremities. no overlying skin changes/ hematoma to back. There is midline spinous tenderness over lumbar spine. Tenderness to palpation over bilateral lumbar paraspinal muscles. no pallpable fluctuance or step off deformity. there is an abrasion to posterior left ankle. negative jang test. 2+ dp/pt pulse intact. sensation intact to light touch throughout. Differential diagnosis includes lumbar contusion, lumbar sprain/strain, lumbar spasm, compression frature, fracture, knee/ ankle contusion, msk quita/strain, fracture. Unlikely achilles tendon rupture, equina, Guillain-[place], epidural abscess, cord compression, ICH, CVA/TIA. Plan for imaging, pain control, and re-evaluation. Differential Diagnosis Differential Diagnoses: The differential diagnosis associated with the presentation includes as above. Admission/Observation not indicated. Independent Interpretation I performed an independent interpretation of an: Plain X-Ray and CT Scan Interpretation: XR left ankle/foot without fracture XR left knee without fractyre XR lumbar spine without fracture CT lumbar spine without fracture Radiology Impression Discussion of test interpretation with radiology: I have reviewed the radiologist's reading. Radiologist Impression: Procedure(s): XR foot LT min 3V Accession Number(s): [id number] cc: Katie Anderson PA-C; Jena Fabian~ CLINICAL HISTORY: foot pain s p fall 3 views left foot Comparison: None Findings: No fractures, subluxations or dislocations. No periostitis or bony destruction. Joint intervals are preserved. No marginal erosions or overhanging osteophytes. Calcaneus and subtalar joint intact. No significant arthritic change. Small plantar calcaneal enthesophyte. Normal bone mineralization and soft tissues. Normal pre-Achilles fat pad. No radiopaque foreign body. Impression: 1. No acute fractures or malalignment Procedure(s): XR ankle LT min 3V Accession Number(s): [id number] cc: Katie Anderson PA-C; Jena Fabian~ CLINICAL HISTORY: posterior ankle pain s p fall 3 views left ankle Comparison: None Findings: No fractures, subluxations or dislocations. Ankle mortise intact. Normal plafond. No osteochondral lesions. Calcaneus and subtalar joint intact. No significant arthritic change. Small plantar calcaneal enthesophyte. Normal bone mineralization and soft tissues. Normal pre-Achilles fat pad. No radiopaque foreign body. Impression: 1. No fractures or malalignment. Procedure(s): XR knee LT 3V Accession Number(s): [id number] cc: Katie Anderson PA-C; Jena Fabian~ CLINICAL HISTORY: knee pain s p fall, hx meniscal tear 4 views left knee Comparison: CR - XR KNEE LT 4V - 05/31/24 19:03 EST Findings: No fractures, subluxations or dislocations. Joint intervals are preserved. No osteochondral lesions or loose bodies. Normal patellar alignment. No suprapatellar joint effusion.No prepatellar soft tissue swelling. Normal bone mineralization and soft tissues. No unusual radiopaque foreign body. Impression: 1. No acute fractures or malalignment. Procedure(s): XR lumbar spine 2-3V Accession Number(s): [id number] cc: Katie Anderson PA-C; Jeanne De Los Santos NP~ CLINICAL HISTORY: slip and fall 3 views lumbar spine Comparison: None Findings: No fractures or spondylolisthesis. Normal facets Disc spaces are maintained. Pedicles and transverse processes intact. Lordotic curvature is preserved. Normal bone mineralization. 4 mm probable renal calculus upper pole right kidney. Sacroiliac joints unremarkable. Impression: 1. No compression fractures or spondylolisthesis. Suspect nephrolithiasis on the right Procedure(s): CT lumbar spine wo IV con Accession Number(s): [id number] cc: Katie Anderson PA-C; Jena Fabian~ Report Number: [id number]: Total DLP = 557.00 mGy-cm CLINICAL HISTORY: fall, midline lumbar coccyx tenderness ?fracture CT lumbar spine without contrast Comparison: CR - XR LUMBAR SPINE 2-3V - 08/27/24 10:13 EDT Findings: The vertebral bodies show no evidence of an acute compression fracture. Pedicles and transverse processes intact. No spinous process fractures. Mild degenerative facet arthropathy L4-5 and L5-S1. No central spinal canal stenosis There is normal alignment. Lordotic curvature is preserved. Normal sacroiliac joints. The bones are without evidence of lytic or blastic lesions. Paravertebral soft tissues are unremarkable. 5 mm caliceal stone right kidney retroverted uterus. Impression: 1. Negative CT lumbar spine for acute process. 2. Nephrolithiasis on the right. Probable functional cyst right ovary pelvic sonogram would be confirmatory. Independent Historian Clinical information obtained from an independent historian. History obtained from or confirmed by: Spouse () External Record Review External record reviewed: Inpatient record Prescription Management I considered prescription management with: Pain Medication and Other (lido pain) Social Determinants Patient?s care significantly limited by Social Determinants of Health including: Other Social Determinant of Health Critical Care Time Critical Care Time Critical Care Time: No Discharge Plan Discharge Clinical Impression: Lumbar contusion, Fall down stairs, Abrasion of left heel Patient Disposition: Home, Self-Care Instructions: Abrasion (ED), Fall Prevention (ED), Lower Back Exercises (ED) Additional Instructions: The xrays of your left knee, left ankle and left foot do not show a fracture. The xray and CT scan of your lumbar spine do not remonstrate spinal fracture. There are two incidental findings on your CT scan: 1. 5mm stone within your right kidney 2. cyst on right ovary Follow up with your PCP regarding these findings. In terms of your back pain, you likely have a contusion sustained during your fall. Avoid bending, lifting, or twisting. Use ice several times per day for 20 minutes at a time for the next 48 hours and then change to heat. I recommend you take 600mg ibuprofen every 6 hours or tylenol 650mg every 6 hours as needed for pain. If needed, you can alternate these medications so that you take one medication every 3 hours. For example, at noon take ibuprofen, then at 3pm take tylenol, then at 6pm take ibuprofen. Lidoderm patches are numbing patches. Apply to painful areas. Return to the Emergency Department if you experience worsening back pain, difficulty walking, fevers, numbness, tingling, incontinence, or any other concerning symptoms. In the case of an emergency call 911. Prescriptions: New lidocaine [Lidoderm] 5 % adhesive patch,medicated 1 patch topical DAILY Qty: 15 0RF Rx Instructions: leave on most painful area for up to 12 hrs No Action albuterol sulfate [Ventolin HFA] 90 mcg/actuation HFA aerosol inhaler 2 puff INHALATION Q4H PRN (Reason: wheezing) Qty: 6.7 2RF diclofenac sodium [Arthritis Pain (diclofenac)] 1 % gel 2 g topical QID Qty: 100 0RF Rx Instructions: apply to single knee ferrous sulfate 324 mg (65 mg iron) tablet,delayed release (DR/EC) 324 mg PO DAILY Qty: 30 3RF senna 8.6 mg capsule 8.6 mg PO BEDTIME PRN (Reason: constipation) Qty: 30 1RF naproxen [EC-Naprosyn] 500 mg tablet,delayed release (DR/EC) 500 mg PO BID PRN (Reason: pain) Qty: 60 2RF Referrals: Katie Anderson PA-C [Primary Care Provider] - Stand Alone Forms: Work/School Release Interventions: ED Discharge Assessment Last Done: 08/27/24 13:06 Discharge Date/Time: 08/27/24 13:06 Print Language: [place]er
--- OUTSIDE RECORDS SUMMARY | 2024-08-27 10:10 | XMS_ITS | Patient Health Record ---
Author Organization [facility] Billing Info Address [address] [place] [id number] Care Team Providers Care Recreational Sports Director Name Role Phone MIK CHAVEZ Unavailable [phone] MIK CHAVEZ M.D. Unavailable Reason For Referral [...] Problem Status W/U Status Risk Notes Problem 698117343 Overweight (E66.3) Active confirmed Problem 864407623 Annual physical exam (Z00.00) Active confirmed Problem [id number] Cyst of left breast (N60.02) Active confirmed Problem History of anemia (274648815) History of anemia (Z86.2) Active confirmed Problem 037643727 Mild intermittent asthma without complication (J45.20) Active confirmed Problem 566580025 History of hypoglycemia (Z86.39) Active confirmed Plan Of Treatment No Information Medical (General) History Medical History History ICD Code Asthma Anemia Hypoglycemia Overweight Surgical History Surgery Date(Month/Year) Appendectomy 2017 x 3 Hospitalization History Reason Date(Month/Year) x 3 Appendectomy
--- OUTSIDE RECORDS SUMMARY | 2024-08-27 10:10 | XMS_ITS | Clinical Summary ---
Author Organization [facility] Address [address] [place] [address] Phone Care Team Providers Care Analytical Sciences Director Name Role Phone Physician, No Pcp Primary Care Provider Unavaila ble Allergies No known active allergies Medical History Medical History Date Comments Asthma [...] 2009 COVID-19 Vaccine (2023-2 5 season) 2024 Depression Screening 04/05/2024 HIV Screening 04/05/2024 Hepatitis C Screening 04/05/2024 Social Influencers of Health Screening 04/05/2024 Influenza Vaccine (Season Ended) 2025 HIB Vaccines Aged Out No longer eligi [...] age to complete this topic Meningococcal B Vaccine Aged Out No l onger eligible based on patient's age to complete this topic RSV Immunization Patients Un vincent 20 months Aged Out No longer eligible b ased on patient's age to complete this topic Varicella Vaccines Aged Out No longer eligible based on patient's age to complete this topic Insurance [facility] Care Teams Analytical Sciences Director Relationship Specialty Start Date End Date Physician, No Pcp PCP - General 04/05/24
--- NOTE | 2024-08-27 10:25 | PC.NURSE ---
Pt extremely uncomfortable moving from WC to bed. grimace to sit. No swelling/bruising at coccyx but area is tender. Position of comfort is side lying. Bag of ice applied.
[2024-08-27] MEDS: Cyclobenzaprine HCl 10 MG TABLET PO (11:16)
[2024-08-27] MEDS: Ketorolac Tromethamine 30 MG/ML VIAL IM (11:17)
[2024-08-27] MEDS: Lidocaine 4 % Patch ADH..PATCH 1 PATCH TRANSDERMA (11:17)
[2024-08-27] MEDS: Bacitracin Oint 0.9 GM PACKET 1 APPL TOPICAL (12:56)
[2024-08-27 13:06] VITALS: BP 120/72; PULSE 78; RESP 16; TEMP 36.5; O2SAT 98
== END 2024-08-27 13:06 | disposition home or self-care (01) ==
PROVIDERS: Emergency Provider Emergency Medicine
DX: S90.812A Abrasion, left foot, initial encounter (principal); S30.0XXA Contusion of lower back and pelvis, initial encounter; M54.50 Low back pain, unspecified; M25.562 Pain in left knee; M25.572 Pain in left ankle and joints of left foot; W10.9XXA Fall (on) (from) unspecified stairs and steps, initial encounter; Y93.9 Activity, unspecified; Y92.89 Other specified places as the place of occurrence of the external cause; Y99.8 Other external cause status
CPT/HCPCS: 72100; 72131; 73562; 73610; 73630; 96372; 99284; J1885

== ENCOUNTER → 2024-08-27 10:01 | Outpatient (BNV) | payer OTHER, SELFPAY | PROVIDERS: Emergency Provider Emergency Medicine; Visit Provider Radiology Diagnostic Radiology | DX: M53.3 Sacrococcygeal disorders, not elsewhere classified (principal); M54.50 Low back pain, unspecified; N20.0 Calculus of kidney; M25.562 Pain in left knee; M25.572 Pain in left ankle and joints of left foot; M79.672 Pain in left foot | CPT/HCPCS: 72100; 72131; 73562; 73610; 73630 ==